=== PATIENT | female | born 1990 | race Caucasian/White ===

== ENCOUNTER 2020-01-29 14:53 | Inpatient (IN) | payer OTHER ==
[~2020-01-29] VITALS: Ht 165.1 cm; Wt 70.2 kg
[2020-01-29] VITALS (20 sets, daily range): BP systolic 129–147; BP diastolic 78–107; PULSE 93–127; RESP 18–29; TEMP 97.3–98.7
[2020-01-29] MEDS ORDERED: KETOROLAC TROMETHAMINE 30MG/ML ONE (15:52)
[2020-01-29] MEDS ORDERED: ONDANSETRON HCL 4 MG/2 ML VIAL ONE ×2 (15:52→17:46)
[2020-01-29] MEDS ORDERED: IOHEXOL 350 MG/ML 100ML INFUS..BTL IV ONE (17:25)
[2020-01-29] MEDS ORDERED: ZOSYN 3.375GM+NS 50ML 50 ML IV ONE ×2 (17:34→18:08)
[2020-01-29] MEDS ORDERED: SODIUM CHLORIDE 0.9% 1000ML 1,000 ML IV ONE (17:34)
[2020-01-29] MEDS ORDERED: FENTANYL CITRATE PF 50 MCG/1 ML 2ML VIAL ONE ×3 (17:35→18:26)
[2020-01-29] MEDS ORDERED: GLYCOPYRROLATE 1 MG/5 ML SYRINGE ONE (17:46)
[2020-01-29] MEDS ORDERED: LIDOCAINE PF 2% 5ML ABBOJECT ONE (17:46)
[2020-01-29] MEDS ORDERED: DEXAMETHASONE SOD PHOSPHATE 10MG/ML 1ML VIAL ONE (17:46)
[2020-01-29] MEDS ORDERED: PROPOFOL 10 MG/ML 20ML VIAL IV ONE (17:46)
[2020-01-29] MEDS ORDERED: MIDAZOLAM HCL 1 MG/ML 2ML VIAL ONE (17:46)
[2020-01-29] MEDS ORDERED: ROCURONIUM 10MG/1ML SYR 10 MG/ML ML ONE ×2 (17:47→19:03)
[2020-01-29] MEDS ORDERED: EPHEDRINE SULFATE 50 MG/ML AMPULE ONE (17:48)
[2020-01-29] MEDS ORDERED: ALBUMIN (HUMAN) 5% 250 ML IV ONE (17:54)
[2020-01-29] MEDS ORDERED: KETAMINE 50MG/ML SYRINGE 50 MG/ML DISP.SYRIN IV ONE (17:54)
[2020-01-29] MEDS ORDERED: ALBUMIN (HUMAN) 25% 50 ML IV ONE (17:55)
[2020-01-29] MEDS ORDERED: BUPIVACAINE/PF 0.5% 30ML VIAL ONE (19:13)
[2020-01-29] MEDS: ONDANSETRON HCL 4 MG/2 ML VIAL IVP PRN ×2 (19:55→20:11)
[2020-01-29] MEDS ORDERED: MEPERIDINE-PF 25 MG/ML SYG ONE (20:09)
[2020-01-29] MEDS: MORPHINE SULFATE 4 MG/1ML SYG IV PRN (22:00)
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
[2020-01-29] MEDS: ZOSYN 3.375GM+NS 50ML 50 ML IV SCH (22:28)
[2020-01-29] MEDS: D5W-1/2 NS/20MEQ KCL 1,000 ML IV SCH (22:29)
[2020-01-30] VITALS (13 sets, daily range): BP systolic 129–159; BP diastolic 81–104; PULSE 102–127; RESP 18–21; TEMP 98.1–99.2
[2020-01-30] MEDS ORDERED: MORPHINE SULFATE 2 MG/ML 1ML SYG IVP ONE (00:30)
[2020-01-30] MEDS ORDERED: MORPHINE SULFATE 2 MG/ML 1ML SYG ONE (00:36)
[2020-01-30] MEDS: D5W-1/2 NS/20MEQ KCL 1,000 ML IV SCH ×3 (02:13→14:21)
[2020-01-30] MEDS ORDERED: METRONIDAZOLE 500MG/100ML BAG 100 ML ONE (03:38)
[2020-01-30] MEDS: ONDANSETRON HCL 4 MG/2 ML VIAL IVP PRN ×4 (03:46→19:53)
[2020-01-30] MEDS: METRONIDAZOLE 500MG/100ML BAG 100 ML IV SCH ×3 (03:46→21:29)
[2020-01-30] MEDS: MORPHINE SULFATE 4 MG/1ML SYG IV PRN ×5 (03:48→19:54)
[2020-01-30] MEDS: ZOSYN 3.375GM+NS 50ML 50 ML IV SCH ×3 (05:59→19:53)
--- NOTE | 2020-01-30 08:15 | NUR ---
OB CONSULT Iman CASTANEDA CALLED PER CONSULT REQUEST FOR VAGINAL BLEEDING. MD MADE AWARE OF PATIENT STATUS OVER THE PHONE.
--- NOTE | 2020-01-30 08:41 | NUR ---
RAYNA TIJERINA MD MADE ROUNDS, SPOKE WITH PT AT BEDSIDE. GAVE ORDERS TO HAVE PT WORK WITH PT TO GET OUT OF BED TO CHAIR. INFORMED THE PT THAT SHE WOULD NEED SEVERAL DAYS OF ANTIBIOTICS. WANTS FOR PT TO REMAIN NPO.
[2020-01-30] MEDS: SODIUM CHLORIDE 0.9% 1000ML 500 ML IV SCH ×3 (09:45→10:45)
[2020-01-30] MEDS: FAMOTIDINE/PF 20 MG/2 ML VIAL IV SCH (10:33)
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
[2020-01-31] MEDS: ONDANSETRON HCL 4 MG/2 ML VIAL IVP PRN (02:38)
[2020-01-31] MEDS: MORPHINE SULFATE 4 MG/1ML SYG IV PRN ×4 (02:38→20:10)
[2020-01-31] MEDS: D5W-1/2 NS/20MEQ KCL 1,000 ML IV SCH ×5 (02:39→20:19)
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
[2020-01-31 03:19] VITALS: BP 127/87; PULSE 111; RESP 18; TEMP 99.2
[2020-01-31] MEDS: ZOSYN 3.375GM+NS 50ML 50 ML IV SCH ×3 (03:19→20:09)
--- NOTE | 2020-01-31 03:21 | NUR ---
BATH PT OFFERED BATH, REQUESTING TO HAVE ONE AFTER 0800. PT WANTS TO SLEEP NOW.
[2020-01-31] MEDS: METRONIDAZOLE 500MG/100ML BAG 100 ML IV SCH ×3 (05:31→21:58)
[2020-01-31 07:40] VITALS: BP 141/92; PULSE 109; RESP 18; TEMP 99.4
[2020-01-31] MEDS: FAMOTIDINE/PF 20 MG/2 ML VIAL IV SCH (08:17)
[2020-01-31 10:44] VITALS: BP 145/65; PULSE 110; RESP 18; TEMP 99.3
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
[2020-01-31 16:18] VITALS: BP 149/98; PULSE 113; RESP 18; TEMP 101.5
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
--- NOTE | 2020-01-31 16:38 | NUR ---
[facility] Recd call from Olive Hartley from Crisis center. She will be here at 8am to meet with pt.
[2020-01-31 20:14] VITALS: BP 129/85; PULSE 120; RESP 20; TEMP 99.9
--- NOTE | 2020-01-31 22:10 | NUR ---
TEMP OF 99.9 WITH SINUS TACH 130's Reported to on-call hospitalist. Pt ice cold packs applied and morphine prn for pain given at 2009. Heart rate maintained to 127's. Ordered to give Tylenol 650 mg supp x 1 dose only.
[2020-01-31] MEDS ORDERED: ACETAMINOPHEN 650 MG SUPPOSITORY RC SCH (22:15)
[2020-01-31] MEDS ORDERED: ACETAMINOPHEN 650 MG SUPPOSITORY RC ONE (22:20)
[2020-01-31 23:33] VITALS: BP 127/76; PULSE 120; RESP 16; TEMP 99.5
[2020-02-01] MEDS: MORPHINE SULFATE 4 MG/1ML SYG IV PRN ×5 (02:14→20:38)
[2020-02-01 04:25] VITALS: BP 124/79; PULSE 106; RESP 16; TEMP 99.8
[2020-02-01] MEDS: METRONIDAZOLE 500MG/100ML BAG 100 ML IV SCH ×3 (05:08→20:23)
[2020-02-01] MEDS: D5W-1/2 NS/20MEQ KCL 1,000 ML IV SCH ×2 (06:05→21:29)
[2020-02-01] MEDS: ZOSYN 3.375GM+NS 50ML 50 ML IV SCH ×3 (06:05→20:23)
[2020-02-01] MEDS: ONDANSETRON HCL 4 MG/2 ML VIAL IVP PRN (06:16)
[2020-02-01 08:00] VITALS: BP 123/81; PULSE 117; RESP 19; TEMP 100.2
--- NOTE | 2020-02-01 08:30 | NUR ---
[facility] Olive Hartley with [facility] here to meet with pt for possible assist with residential and legal support and well as emotional support. Security aware of this and no visitors will be allowed during this meeting. Nurse Niki and CARLIE aware
[2020-02-01] MEDS: FAMOTIDINE/PF 20 MG/2 ML VIAL IV SCH (09:49)
[2020-02-01 12:00] VITALS: BP 119/78; PULSE 115; RESP 20; TEMP 99.7
[2020-02-01] MEDS: FLUCONAZOLE 200 MG/NS 100 ML 100 ML IV SCH (14:00)
--- NOTE | 2020-02-01 14:30 | NUR ---
DR CHIN IN TO SEE PT. REMOVED BINDER AND ORDER TO LEAVE SURGICAL WOUND TO OPEN AIR. OK TO SHOWER.
[2020-02-01 16:00] VITALS: BP 123/77; PULSE 115; RESP 19; TEMP 99.7
[2020-02-01] MEDS ORDERED: FLUCONAZOLE 200 MG/NS 100 ML 100 ML ONE (17:36)
--- NOTE | 2020-02-01 18:26 | NUR ---
PT. WILL TRANSFER TO 3RD. FLOOR ROOM 313. REPORT GIVEN TO ANT MATHEW RN.
[2020-02-01 19:20] VITALS: BP 142/91; PULSE 104; RESP 17; TEMP 98.1
[2020-02-01] MEDS ORDERED: DEXTROSE 5 %-0.45 % NACL 0 ML IV ONE (20:05)
[2020-02-01 23:14] VITALS: BP 140/90; PULSE 110; RESP 17; TEMP 99
[2020-02-02] MEDS: MORPHINE SULFATE 4 MG/1ML SYG IV PRN ×7 (01:09→23:15)
[2020-02-02 03:50] VITALS: BP 142/90; PULSE 100; RESP 17; TEMP 98.5
[2020-02-02] MEDS: METRONIDAZOLE 500MG/100ML BAG 100 ML IV SCH ×3 (04:07→20:09)
[2020-02-02] MEDS: ZOSYN 3.375GM+NS 50ML 50 ML IV SCH ×3 (04:07→20:09)
[2020-02-02] MEDS: D5W-1/2 NS/20MEQ KCL 1,000 ML IV SCH ×3 (06:42→20:10)
[2020-02-02 07:54] VITALS: BP 127/80; PULSE 51; RESP 20; TEMP 98.7
[2020-02-02] MEDS: FAMOTIDINE/PF 20 MG/2 ML VIAL IV SCH (09:05)
--- NOTE | 2020-02-02 10:06 | NUR ---
[facility] f/u Sw left message for Olive Hartley at [facility] for update on dcp. Waiting for response
[2020-02-02 11:16] VITALS: BP 131/74; PULSE 107; RESP 21; TEMP 99.3
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
[2020-02-02] MEDS: FLUCONAZOLE 200 MG/NS 100 ML 100 ML IV SCH (13:07)
[2020-02-02 16:17] VITALS: BP 131/79; PULSE 105; RESP 20; TEMP 99.1
--- NOTE | 2020-02-02 18:10 | NUR ---
NG TUBE CLAMPED NG TUBE AT APPROX 0910 HOURS DIRECTED FOR 4 HOURS. AT APPROX 1309 ASSESSED RESIDUAL, APPROX 25ML OF GREEN FLUID WAS SUCTIONED. NG TUBE WAS DISCONTINUED ORDERED.
[2020-02-02 19:51] VITALS: BP 116/80; PULSE 112; RESP 18; TEMP 100.8
[2020-02-02] MEDS: ONDANSETRON HCL 4 MG/2 ML VIAL IVP PRN (20:10)
[2020-02-03] VITALS (7 sets, daily range): BP systolic 105–114; BP diastolic 68–79; PULSE 102–112; RESP 17–19; TEMP 98.1–101.4
[2020-02-03] MEDS: ONDANSETRON HCL 4 MG/2 ML VIAL IVP PRN (02:30)
[2020-02-03] MEDS: MORPHINE SULFATE 4 MG/1ML SYG IV PRN ×6 (02:32→20:21)
[2020-02-03] MEDS: ZOSYN 3.375GM+NS 50ML 50 ML IV SCH ×3 (05:20→20:05)
[2020-02-03] MEDS: METRONIDAZOLE 500MG/100ML BAG 100 ML IV SCH ×3 (05:20→22:28)
[2020-02-03] MEDS: D5W-1/2 NS/20MEQ KCL 1,000 ML IV SCH ×2 (05:21→15:22)
--- NOTE | 2020-02-03 09:30 | NUR ---
DR. COLT NEVES INFORMED THAT PATIENTS REPORTS SWELLING TO VAGINA, LEFT LABIAL FOLD. PATIENT REPORTS THE SWELLING FEEL WORSE TODAY.
[2020-02-03] MEDS: FAMOTIDINE/PF 20 MG/2 ML VIAL IV SCH (09:38)
[2020-02-03] MEDS: KETOROLAC TROMETHAMINE 15MG/ML IV SCH (10:07)
--- NOTE | 2020-02-03 10:15 | NUR ---
DR. CASTANEDA AWARE OF RE-CONSULT
[2020-02-03] MEDS ORDERED: DIATR MEGLU/DIATRIZOATE SODIUM 30 ML BOTTLE ONE (10:26)
[2020-02-03] MEDS ORDERED: BISACODYL 10 MG SUPP.RECT RC SCH (11:15)
--- NOTE | 2020-02-03 11:30 | NUR ---
DR. APONTE PAGED REGARDING CONSULT
[2020-02-03] MEDS ORDERED: IOHEXOL-350 75 ML VIAL IV ONE (13:15)
--- NOTE | 2020-02-03 16:17 | NUR ---
RE:CT GD ABDOMINAL DRAINAGE BY IR DR Jose DANIEL NOTIFIED OF PROCEDURE AT 1530 AND CALLED BACK AT 1600. REVIEWED IMAGES AND RESCHEDULED FOR TOMORROW MORNING SINCE PATIENT HAD BREAKFAST. DR Herman ALMONTE NOTIFIED OF PROCEDURE AND WILL REVIEW IMAGES TOMORROW. PROCEDURE OUTCOME REPORTED TO Hong DEAL RN. ORDERS PLACED IN [employer].
[2020-02-03] MEDS: ACETAMINOPHEN 325 MG TAB PO PRN (16:36)
[2020-02-03] MEDS: FLUCONAZOLE 200 MG/NS 100 ML 100 ML IV SCH (17:15)
[2020-02-04] VITALS (14 sets, daily range): BP systolic 109–133; BP diastolic 64–86; PULSE 86–125; RESP 16–22; TEMP 97.8–100.6
[2020-02-04] MEDS: MORPHINE SULFATE 4 MG/1ML SYG IV PRN ×3 (00:44→09:44)
[2020-02-04] MEDS: D5W-1/2 NS/20MEQ KCL 1,000 ML IV SCH ×3 (01:15→15:33)
[2020-02-04] MEDS ORDERED: KETOROLAC TROMETHAMINE 15MG/ML IV SCH (03:45)
[2020-02-04] MEDS: ZOSYN 3.375GM+NS 50ML 50 ML IV SCH ×3 (04:32→20:51)
[2020-02-04] MEDS: METRONIDAZOLE 500MG/100ML BAG 100 ML IV SCH ×3 (05:08→21:47)
[2020-02-04] MEDS: FAMOTIDINE/PF 20 MG/2 ML VIAL IV SCH (09:00)
[2020-02-04] MEDS: KETOROLAC TROMETHAMINE 15MG/ML IV SCH (09:36)
[2020-02-04] MEDS ORDERED: MORPHINE SULFATE 4 MG/1ML SYG ONE (09:43)
[2020-02-04] MEDS ORDERED: FENTANYL CITRATE PF 50 MCG/1 ML 2ML VIAL ONE (10:44)
[2020-02-04] MEDS ORDERED: MIDAZOLAM HCL 1 MG/ML 2ML VIAL ONE (10:44)
--- NOTE | 2020-02-04 11:30 | NUR ---
CT GD ABD DRAINAGE CATHETER PLACEMENT PROCEDURE PERFORMED BY DR Herman ALMONTE. PUNCTURE SITE LLQ. PATIENT TOLERATED PROCEDURE WELL. 10FR PIGTAIL CATHETER PLACED TO PELVIC ABSCESS AND CONNECTED TO DRAIN BAG. CATHETER SUTURED IN PLACE AND SECURED WITH STAY-FIX DRESSING. SPECIMEN COLLECTED AND SENT TO LAB. END OF PROCEDURE AT 1115. REPORT GIVEN TO Kelly PHILIP RN AND PATIENT TRANSPORTED TO [facility] VIA BED AT 1130. AAO X3 WITH NO C/O PAIN.
[2020-02-04] MEDS ORDERED: HYDROCODONE/ACETAMINOPHEN 7.5/325 MG TAB PO PRN (12:00)
[2020-02-04] MEDS ORDERED: ZOSYN 3.375GM+NS 50ML 50 ML IV ONE (12:23)
[2020-02-04] MEDS: FLUCONAZOLE 200 MG/NS 100 ML 100 ML IV SCH (15:19)
[2020-02-04] MEDS: KETOROLAC TROMETHAMINE 10 MG TABLET PO SCH ×2 (18:13→23:48)
[2020-02-04] MEDS: ACETAMINOPHEN-CODEINE 300/30MG TAB PO PRN (20:48)
[2020-02-05 03:37] VITALS: BP 117/74; PULSE 89; RESP 17; TEMP 98.8
[2020-02-05] MEDS: METRONIDAZOLE 500MG/100ML BAG 100 ML IV SCH ×3 (05:56→20:50)
[2020-02-05] MEDS: ZOSYN 3.375GM+NS 50ML 50 ML IV SCH ×3 (05:56→20:50)
[2020-02-05] MEDS: KETOROLAC TROMETHAMINE 10 MG TABLET PO SCH ×3 (05:56→18:41)
[2020-02-05 08:27] VITALS: BP 119/73; PULSE 102; RESP 18; TEMP 97.9
[2020-02-05] MEDS: FAMOTIDINE/PF 20 MG/2 ML VIAL IV SCH (10:49)
[2020-02-05] MEDS: ACETAMINOPHEN-CODEINE 300/30MG TAB PO PRN ×2 (10:50→20:50)
--- NOTE | 2020-02-05 11:51 | NUR ---
FADI SPOKE TO DR APONTE OVER THE PHONE ADN HE STATES HE IS NOT HEALTHCARE CUSTOMER SERVICE OR COMING UNTIL THURSDAY TO SEE THE PATIENT. WILL INFORM NURSE TO CALL TOMORROW AFTERNOON TO REMIND HIS OFFICE ABOUT THE CONSULT AND PATIENT REMAINS ON HIS CENSUS WELL.
[2020-02-05 11:59] VITALS: BP 131/78; PULSE 96; RESP 20; TEMP 100.8
[2020-02-05] MEDS: QUETIAPINE FUMARATE 25 MG TAB PO SCH (12:59)
[2020-02-05] MEDS: PAROXETINE HCL 20 MG TABLET PO SCH (12:59)
[2020-02-05] MEDS: FLUCONAZOLE 200 MG/NS 100 ML 100 ML IV SCH (14:10)
[2020-02-05] MEDS: HYDROMORPHONE 1 MG/1 ML AMP IVP PRN ×3 (14:11→23:15)
[2020-02-05 16:00] VITALS: BP 115/71; PULSE 87; RESP 20; TEMP 98
--- NOTE | 2020-02-05 18:00 | NUR ---
NOTE DR BELTRAN CAME IN AND EXPLAINED TO PATIENT THE REASON FOR THE CONSULT. PLEURAL EFFUSION. SHE HAD BEEN GIVEN INFORMATION REGARDING THIS AND ALSO REGARDING THORACENTESIS. PATIENT GAVE INFORMED CONSENT AND THEN TOLERATED PROCEDURE WELL. MINIMAL DISCOMFORT FROM IT. DRESSING TO PUNCTURE SITE D/I. DR BELTRAN EXPLAINED THE PROCEDURE WELL AND AFTER WARDS HE SCANNED WITH ULTRASOUND AND SAID NO CXR WAS NEEDED. PATIENT WITHOUT INCREASED SOB. REMAINS WITH O2@2LNC.
[2020-02-05 19:00] VITALS: BP 119/73; PULSE 98; RESP 18; TEMP 98
--- NOTE | 2020-02-05 20:50 | NUR ---
MEDS PT CLAIMS OF PAIN ON HER LEFT FLANK AREA. SHIFT ASSESSMENT DONE, PLEASE REFER TO CHART. DUE MEDS ADMINISTERED, TYLENOL #3 1 TAB PO GIVEN FOR PAIN, TOLERATED WELL. ASSISTED PT TO THE RESTROOM THEN BACK TO BED. WARM PACKS APPLIED TO BACK PT REQUESTED. KEPT COMFORTABLY IN BED WITH HOB ELEVATED. WILL MONITOR PT. Addendum: 02/06/20 at 0109 by INDY CERRATO RN RN Amended: Links added.
[2020-02-05 23:00] VITALS: BP 114/79; PULSE 92; RESP 18; TEMP 98.2
--- NOTE | 2020-02-05 23:15 | NUR ---
PAIN PT CALLS FOR PAIN MEDICATION. DILAUDID IV ADMINISTERED. POSITIONED COMFORTABLY IN BED WITH HOB ELEVATED. WILL RE-ASSESS PT.
[2020-02-06] MEDS: KETOROLAC TROMETHAMINE 10 MG TABLET PO SCH ×2 (00:08→05:37)
--- NOTE | 2020-02-06 02:00 | NUR ---
ROUNDS PT RESTING WELL, FAIRLY ASLEEP WITH RESPIRATIONS EVEN AND UNLABORED. NO DISTRESS NOTED. KEPT UNDISTURBED FOR NOW. WILL MONITOR PT. CALL LIGHT WITHIN REACH.
--- NOTE | 2020-02-06 02:15 | NUR ---
CALL PT CLAIMS OF PINCHING PAIN ON HER CHEST WHEN SHE BREATHS. PT ASKS FOR IV PAIN MEDICATION. EXPLAINED THAT DILAUDID IV IS NOT DUE AT THIS TIME. OFFERED PLAIN TYLENOL IT IS THE ONLY MED AVAILABLE AT THIS TIME BUT DECLINED AND CLAIMS SHE WILL WAIT FOR THE IV MED. PT IS UPSET AND CLAIMS THAT WHEN SHE DOES NOT CALL NOBODY GOES TO HER ROOM TO CHECK ON HER. REMINDED PT THAT PCP IS IN CHECKING V/S EVERY FOUR HOURS AND CURRICULUM ADVISORY TEACHER IS ALSO IN GIVING HER MEDS ALMOST EVERY HOUR. IN FACT CURRICULUM ADVISORY TEACHER WAS JUST IN 15 MINUTES EARLIER DOING ROUNDS AND SHE WAS ASLEEP. PT IS QUICK TO SAY THAT IT WAS NOT CURRICULUM ADVISORY TEACHER. REMINDED PT THAT TWO OTHER NURSES ON THE FLOOR HAD ANSWERED HER LIGHT WHEN SHE CALLED WHILE CURRICULUM ADVISORY TEACHER WAS ATTENDING TO OTHER PT. ENCOURAGED PT TO CALM DOWN AND TO DO IS FOR NOW. ASSURED PT TO COME AND RE-ASSESS PT IN AN HOUR WHEN IV DILAUDID IS DUE TO CHECK IF SHE STILL NEED IT. PT IS AGREEABLE AT THIS TIME.
[2020-02-06 03:00] VITALS: BP 123/74; PULSE 96; RESP 18; TEMP 99.1
[2020-02-06] MEDS: HYDROMORPHONE 1 MG/1 ML AMP IVP PRN ×5 (03:19→23:40)
--- NOTE | 2020-02-06 03:50 | NUR ---
WOUND PT CALLS SX INCISION ON MID ABDOMEN IS LEAKING YELLOWISH DRAINAGE. CLEANSED WOUND WITH SALINE, PAT DRY THEN COVERED WITH ABD PAD, SECURED WITH TAPE. INSTRUCTED PT TO INFORM STAFF IS GAUZE NEEDED CHANGING. PT ABLE TO AMBULATE ALONE BUT SLOWLY DUE TO SX INCISIONS. DUE IV ZOSYN HUNG. POSITIONED COMFORTABLY IN BED.
[2020-02-06] MEDS: ZOSYN 3.375GM+NS 50ML 50 ML IV SCH ×3 (03:57→21:24)
[2020-02-06] MEDS: METRONIDAZOLE 500MG/100ML BAG 100 ML IV SCH ×3 (05:14→21:24)
--- NOTE | 2020-02-06 05:37 | NUR ---
MEDS PT IS DOING IS AT THIS TIME. CLAIMS OF PAIN ON CHEST WITH BREATHING. EXPLAINED THAT PAIN MAYBE ASSOCIATED WITH RIB FRACTURE. DUE KETOROLAC PO ADMINISTERED. KEPT RESTED IN BED. FOR MORE CARE.
--- NOTE | 2020-02-06 06:47 | NUR ---
PAGED PAGED DR WAY, VIA ANSWERING SERVICE, TO REFER DRAINAGE ON SX WOUND. AWAITING CALL BACK.
--- NOTE | 2020-02-06 07:03 | NUR ---
MD DR WAY CALLED BACK AND REFERRED DRAINAGE ON THE SX SITE. NEW ORDERS GIVEN, PLEASE REFER TO CPOE. ENDORSING TO AM SHIFT FOR MORE CARE AND MANAGEMENT.
[2020-02-06 07:30] VITALS: BP 124/76; PULSE 96; RESP 21; TEMP 98.5
[2020-02-06] MEDS: PAROXETINE HCL 20 MG TABLET PO SCH (08:57)
[2020-02-06] MEDS: FAMOTIDINE/PF 20 MG/2 ML VIAL IV SCH (08:58)
[2020-02-06] MEDS: QUETIAPINE FUMARATE 25 MG TAB PO SCH (08:58)
[2020-02-06] MEDS ORDERED: TRAMADOL /APAP 37.5MG/325MG TAB PO PRN (10:00)
[2020-02-06 11:00] VITALS: BP 122/79; PULSE 101; RESP 18; TEMP 98.6
--- NOTE | 2020-02-06 11:28 | NUR ---
MD: RAYNA SPOKE TO DR WAY REGARDING DRAINAGE TO SX INCISION. STATED IS AWARE OF DRAINAGE . PER MD PACK DAILY, AND NEEDED. INFORMED HER OF YELLOW COLORED DRAINAGE, TEMP OF 100.2, AND ABD PAIN. NO FURTHER ORDERS GIVEN.
[2020-02-06] MEDS ORDERED: COMPOUND IV MISC 1 EACH IVSOLN MISC PRN (13:00)
[2020-02-06] MEDS: LACTATED RINGERS 1000ML 1,000 ML IV SCH ×2 (14:02→21:25)
[2020-02-06] MEDS: FLUCONAZOLE 200 MG/NS 100 ML 100 ML IV SCH (14:02)
[2020-02-06 16:00] VITALS: BP 126/80; PULSE 110; RESP 18; TEMP 100.4
--- NOTE | 2020-02-06 17:00 | NUR ---
SPOKE WITH DR WAY VIA TELEPHONE. MADE AWARE OF CT AND THAT SX INCISION IS STILL DRAINING, NOW DRAINING YELLOW-GREEN FLUID WITH SEDIMENT AND OF PT COMPLAINT OF ABD PAIN. NO NEW ORDERS GIVEN BY .
--- NOTE | 2020-02-06 17:00 | NUR ---
SPOKE WITH DR WAY REGARDING CT OF ABD/PEL RECOMMENDED BY DR PARK.
[2020-02-06 19:44] VITALS: BP 122/75; PULSE 101; RESP 19; TEMP 101.1
--- NOTE | 2020-02-06 20:46 | NUR ---
CALLED DR APONTE TO CLARIFY ORDER: CYMBALTA 30 MG 8AM AND 3PM. PER MD ORDERED CYMBALTA 30 MG PO BID. ORDER ENTERED.
[2020-02-06] MEDS: PRAZOSIN 2 MG PO SCH (21:00)
[2020-02-06] MEDS: DULOXETINE HCL 30 MG CAP PO SCH (21:24)
[2020-02-06] MEDS: RISPERIDONE 1 MG TABLET PO SCH (21:24)
[2020-02-06] MEDS ORDERED: DIATR MEGLU/DIATRIZOATE SODIUM 30 ML BOTTLE ONE (23:15)
[2020-02-06] MEDS ORDERED: VANCOMYCIN PROTOCOL PER PHARMACY IV SCH (23:15)
[2020-02-06] MEDS: ACETAMINOPHEN 325 MG TAB PO PRN (23:41)
[2020-02-06 23:47] VITALS: BP 126/85; PULSE 94; RESP 18; TEMP 101.1
[2020-02-07] MEDS ORDERED: SODIUM CHLORIDE 0.9% IV SCH
[2020-02-07] MEDS ORDERED: LACTATED RINGERS 1000ML IV ONE
[2020-02-07] MEDS ORDERED: VANCOMYCIN IV SCH
[2020-02-07] MEDS ORDERED: HYDROMORPHONE HCL 0.5 MG/0.5 ML ML ONE (00:24)
[2020-02-07] MEDS ORDERED: VANCOMYCIN 1GM+NS 250ML 250 ML IV ONE (00:24)
[2020-02-07] MEDS ORDERED: HYDROMORPHONE HCL 0.5 MG/0.5 ML ML IVP ONE (00:30)
[2020-02-07 00:41] VITALS: TEMP 99.7
[2020-02-07] MEDS: LACTATED RINGERS 1000ML 1,000 ML IV SCH ×2 (00:54→08:30)
--- NOTE | 2020-02-07 02:30 | NUR ---
02/05: I paged JoseBessjose alberto MERAZ via answering service, patient with elevated temperature of 101.1 oral. Ice packs placed in use. Patient complaining of severe pain even after I administered that Diluadid 1 mg earlier. Patient also have light yellow/green watery drainage from incision site. Dressing being changed as needed, done twice by now. 02/05@2034: Repaged Shannon MERAZ via answering service pending call. 02/05 @2109: Patient continues with elevated temperature of 101.1 oral. Dressing to abdomen changed 2 more times. Now with brown watery drainage large amount. Repaged Shannon MERAZ via answering service, asked if I could be connected directly to JoseHemalatha Andrzej MERAZ, answering service stated they would let her know, by paging her. 02/05 @2229: Patient now having loose stools coming out of the incision site, asked one of the other nurses to check drainage, also agreed it was feces coming out. Repaged Shannon MERAZ through answering service, let them know why I needed her to call me back. 02/05 @2253: Shannon MERAZ returned the call informed her of above, informed her patient's temperature still up at 101.1 oral, also let her know of the drainage coming out of the incision. Orders received for lab work, to call ID and surgeon for the patient. Patient made aware of new orders, verbalized understanding. 02/05@ 2256: I called answering service for Dr. Sams who connected me with the doctor at 2305. Informed Dr. Sams about the drainage now coming out from incision. Orders received for a CT Scan with oral contrast of Abdomen/Pelvis, also to keep patient NPO, and to put a colostomy bag . Informed her I would be calling the ID doctor due to the elevated temperature, verbalized understanding. 02/06@ 0003: Dr. Saenz called and informed of patient's elevated temperature. Informed him that the primary had already been informed and that she ordered for me to call him. Orders received for Vancomycin to be dosage by pharmacy.Orders entered and Luis pharmacist called and made aware of the needed dosing of Vancomycin, verbalized understanding. Patient made aware of new orders verbalized understanding. 02/06@0030: Shannon MERAZ in to see patient, informed her of what the orders from and Dr. Saenz were, verbalized understanding. She stated she wanted me to give a bolus of the LR due to patient septic at this time. LR one bolus administered at this time. Informed her that patient not having any relief from the diluadid I have been administering. Orders received to administer 0.5 mg more of Diluadid at this time. Colostomy placed in use large amount of drainage still coming out. 02/06@0130 Patient asleep, breathing nonlabored no discomfort noted. 02/06@0230: Patient back from CT scan. 023
--- NOTE | 2020-02-07 03:03 | NUR ---
called and informed her that patient CT results in and that it shows a fistula between stomach and incision. No new orders received.
[2020-02-07 03:42] VITALS: BP 114/70; PULSE 97; RESP 18; TEMP 98.8
[2020-02-07] MEDS: ZOSYN 3.375GM+NS 50ML 50 ML IV SCH (04:59)
[2020-02-07] MEDS: HYDROMORPHONE 1 MG/1 ML AMP IVP PRN ×6 (04:59→19:25)
[2020-02-07] MEDS: METRONIDAZOLE 500MG/100ML BAG 100 ML IV SCH ×2 (05:00→13:23)
[2020-02-07] MEDS ORDERED: COMPOUND IV REFRIGERATED 1 EACH IVSOLN MISC PRN (06:30)
--- NOTE | 2020-02-07 07:40 | NUR ---
called and ordered for LIS NGT, zinc oxide or narcal barrier to protect the rest of the skin where the colostomy is due to incision. Also strick I/O after NGT is placed to LIS. Incoming nurse made aware of new orders.
--- NOTE | 2020-02-07 08:00 | NUR ---
Received call from nora jeffries md spoke with dr bhatia on patient status ,1:1 done on consult .
--- NOTE | 2020-02-07 08:00 | NUR ---
NGT TUBE PLACED AND VERIFIED WITH X RAY DELTA AT 55.. CONT ON PAIN MANAGEMENT AND ANTIBIOTIC THERAPY . WILL CONT TO MONITOR
[2020-02-07] MEDS: VANCOMYCIN 1.25 GM in SODIUM CHLORIDE 0.9% 250 ML IV SCH (08:28)
[2020-02-07 08:29] VITALS: BP 118/77; PULSE 102; RESP 18; TEMP 98.4
[2020-02-07] MEDS: PRAZOSIN 2 MG PO SCH ×2 (09:00→21:00)
[2020-02-07] MEDS: PAROXETINE HCL 20 MG TABLET PO SCH (09:00)
[2020-02-07] MEDS: QUETIAPINE FUMARATE 25 MG TAB PO SCH (09:00)
[2020-02-07] MEDS: DULOXETINE HCL 30 MG CAP PO SCH ×2 (09:00→21:00)
[2020-02-07] MEDS: FAMOTIDINE/PF 20 MG/2 ML VIAL IV SCH (09:13)
[2020-02-07] MEDS: IRON SUCROSE COMPLEX 100 MG in SODIUM CHLORIDE 0.9% 50 ML IV SCH (10:20)
--- NOTE | 2020-02-07 10:54 | NUR ---
CONT TO MONITOR PATIENT PER TELE SINUS TACH DON TO 109 FROM 117 POST PAIN MEDICATION .WILL CONT TO MONITOR
[2020-02-07] MEDS: MEROPENEM 1 GM VIAL IVP SCH ×2 (11:19→18:34)
[2020-02-07 12:08] VITALS: BP 117/72; PULSE 107; RESP 16; TEMP 98.6
[2020-02-07] MEDS: FLUCONAZOLE 200 MG/NS 100 ML 100 ML IV SCH (13:23)
--- NOTE | 2020-02-07 14:19 | NUR ---
RDSCREEN - LOS X 9 Pt admitted for Perforated bowel. NPO with NGT for suction in place. S/p Ex Lap. Previous PO at 50-75%. Incisions with drainage as per EMR. When medically feasible, recommend resume diet/advance as tolerated to GI Soft/[place] Recommend Altered means nutrition if NPO >[address] to continue to monitor. Please notify as additional nutrition concerns arise. Thank you. Addendum: 02/07/20 at [address] Amended: Links added.
--- NOTE | 2020-02-07 14:30 | NUR ---
NOTIFIED DR WAY OF TEMP 100.4 ..NO NEW ORDERS GIVEN
[2020-02-07] MEDS ORDERED: D5LR-20 MEQ KCL 1000ML BAG IV SCH (15:00)
[2020-02-07] MEDS ORDERED: MAGNESIUM 2GM PREMIX 50ML 50 ML IV SCH (15:00)
--- NOTE | 2020-02-07 15:42 | NUR ---
RD UPDATE NOTIFICATION FOR TPN RECOMMENDATIONS RECOMMEND 83MLS/HR TO PROVIDE 100GM PROTEIN, 1420KCAL, GIR=3.47 REC 20% INTRALIPID MWF RECOMMENDATIONS TO BE PLACED IN PT CHART. RD TO CONTINUE TO MONITOR.
[2020-02-07] MEDS ORDERED: D5LR-20 MEQ KCL 1000 ML 1,000 ML IV SCH (15:45)
[2020-02-07 17:06] VITALS: BP 128/78; PULSE 105; RESP 16; TEMP 100.4
--- NOTE | 2020-02-07 18:00 | NUR ---
NOTIFIED DR VARGAS OF TEMP 102. NEW ORDER FOR TYLENOL SUPP
[2020-02-07] MEDS ORDERED: M.V.I. IV [ADULT] 10 ML in CLINIMIX E 5%-15% 2,000 ML IV SCH (18:15)
[2020-02-07] MEDS: ACETAMINOPHEN 650 MG SUPPOSITORY RC PRN (18:22)
[2020-02-07 20:10] VITALS: BP 129/78; PULSE 112; RESP 18; TEMP 100.8
[2020-02-07] MEDS ORDERED: PANTOPRAZOLE SODIUM 40 MG TABLET.DR PO SCH (21:00)
[2020-02-07] MEDS: RISPERIDONE 1 MG TABLET PO SCH (21:00)
--- NOTE | 2020-02-07 23:43 | NUR ---
Had paged Shannon RETAIL CHAIN STORE AREA SUPERVISOR to let her know patient very anxious requesting medication for anxiety and to sleep. Orders received for Lorazepam 0.5 mg IVP x1, and reconsult for suggestions on IV medication patient can have.
[2020-02-07] MEDS ORDERED: LORAZEPAM 2 MG/ML 1 ML VIAL IM ONE (23:45)
[2020-02-07] MEDS ORDERED: LORAZEPAM 2 MG/ML 1 ML VIAL ONE (23:58)
[2020-02-08] VITALS (12 sets, daily range): BP systolic 114–129; BP diastolic 68–90; PULSE 90–110; RESP 17–20; TEMP 98.4–100.5
[2020-02-08] MEDS: METRONIDAZOLE 500MG/100ML BAG 100 ML IV SCH ×4 (00:10→21:22)
[2020-02-08] MEDS: VANCOMYCIN 1.25 GM in SODIUM CHLORIDE 0.9% 250 ML IV SCH ×3 (01:52→09:00)
[2020-02-08] MEDS: HYDROMORPHONE 1 MG/1 ML AMP IVP PRN ×8 (01:59→22:35)
[2020-02-08] MEDS: MEROPENEM 1 GM VIAL IVP SCH ×3 (02:04→18:16)
[2020-02-08] MEDS: FAT EMULSIONS 20% 250ML 250 ML IV SCH (08:21)
[2020-02-08] MEDS: IRON SUCROSE COMPLEX 100 MG in SODIUM CHLORIDE 0.9% 50 ML IV SCH (08:22)
[2020-02-08] MEDS: FAMOTIDINE/PF 20 MG/2 ML VIAL IV SCH (08:22)
[2020-02-08] MEDS: OCTREOTIDE ACETATE 100 MCG/ML AMP SQ SCH ×2 (08:23→15:46)
[2020-02-08] MEDS: QUETIAPINE FUMARATE 25 MG TAB PO SCH (09:00)
[2020-02-08] MEDS: PRAZOSIN 2 MG PO SCH ×2 (09:00→21:00)
[2020-02-08] MEDS: PAROXETINE HCL 20 MG TABLET PO SCH (09:00)
[2020-02-08] MEDS: DULOXETINE HCL 30 MG CAP PO SCH ×2 (09:00→21:00)
[2020-02-08] MEDS ORDERED: MIDAZOLAM HCL 1 MG/ML 2ML VIAL ONE (11:33)
[2020-02-08] MEDS ORDERED: FENTANYL CITRATE PF 50 MCG/1 ML 2ML VIAL ONE (11:33)
--- NOTE | 2020-02-08 12:30 | NUR ---
CT GD POSTERIOR PELVIC DRAINAGE CATHETER PLACEMENT PROCEDURE PERFORMED BY DR Andreia BERKOWITZ. PUNCTURE SITE LT LOWER BACK. PATIENT TOLERATED PROCEDURE WELL. 10FR PIGTAIL CATHETER PLACED TO PELVIC ABSCESS AND CONNECTED TO DRAIN BAG. CATHETER SUTURED IN PLACE AND SECURED WITH STAY-FIX DRESSING. SPECIMEN COLLECTED AND SENT TO LAB. LLQ DRAIN REMOVED ORDERED WITH STERILE TECHNIQUE. DRESSING APPLIED. NO BLEEDING NOTED. END OF PROCEDURE AT 1210. REPORT GIVEN TO Eleazar FLANAGAN RN AND PATIENT TRANSPORTED TO [facility] VIA BED AT 1230. AAO X3 WITH NO C/O PAIN.
[2020-02-08] MEDS: PANTOPRAZOLE 40 MG/VIAL IVP SCH (12:38)
[2020-02-08] MEDS: FLUCONAZOLE 200 MG/NS 100 ML 100 ML IV SCH (12:56)
--- NOTE | 2020-02-08 17:33 | NUR ---
CHART REVIEWED. NOTE MADE FOR WOUND VAC. WILL FOLLOW WILL NEED TO DISCUSS W DR. NEVILLE LENGTH OF NEED., ETC. WILL NEED RAY WOUND VAC APPLICATION ANDF WOUND VAC ORDERS Addendum: 02/08/20 at 1735 by MYRON PENDLETON RN CM Amended: Links added.
[2020-02-08] MEDS: RISPERIDONE 1 MG TABLET PO SCH (21:00)
[2020-02-08] MEDS: LORAZEPAM 2 MG/ML 1 ML VIAL IM PRN (21:22)
[2020-02-09] VITALS (7 sets, daily range): BP systolic 101–123; BP diastolic 59–85; PULSE 65–115; RESP 18–20; TEMP 97.7–99.9
[2020-02-09] MEDS: OCTREOTIDE ACETATE 100 MCG/ML AMP SQ SCH ×3 (01:35→14:59)
[2020-02-09] MEDS: HYDROMORPHONE 1 MG/1 ML AMP IVP PRN ×7 (01:38→21:30)
[2020-02-09] MEDS: MEROPENEM 1 GM VIAL IVP SCH ×3 (02:45→17:44)
[2020-02-09] MEDS: LORAZEPAM 2 MG/ML 1 ML VIAL IM PRN (02:46)
[2020-02-09] MEDS: PRAZOSIN 2 MG PO SCH ×2 (07:34→21:00)
[2020-02-09] MEDS: DULOXETINE HCL 30 MG CAP PO SCH ×2 (07:34→21:00)
[2020-02-09] MEDS: PAROXETINE HCL 20 MG TABLET PO SCH (07:34)
[2020-02-09] MEDS ORDERED: VANCOMYCIN 2 GM in SODIUM CHLORIDE 0.9% 500ML 500 ML IV SCH (07:45)
--- NOTE | 2020-02-09 07:45 | NUR ---
[facility] consult Wound vac application performed using 1 piece of white foam in wound and 1 piece of black foam over it; adequate seal was obtained and suction set at 200mmhg continuously as ordered. Patient tolerated procedure without adverse effects or complaint. Addendum: 02/09/20 at 1223 by MARLON CONDE RN/LORI Amended: Links added.
[2020-02-09] MEDS: M.V.I. IV [ADULT] 10 ML in CLINIMIX E 5%-15% 2,000 ML IV SCH (08:27)
[2020-02-09] MEDS: QUETIAPINE FUMARATE 25 MG TAB PO SCH (08:28)
[2020-02-09] MEDS: FAMOTIDINE/PF 20 MG/2 ML VIAL IV SCH (08:28)
[2020-02-09] MEDS: PANTOPRAZOLE 40 MG/VIAL IVP SCH (08:28)
[2020-02-09] MEDS: IRON SUCROSE COMPLEX 100 MG in SODIUM CHLORIDE 0.9% 50 ML IV SCH (08:29)
[2020-02-09] MEDS: SODIUM CHLORIDE 0.9% 10 ML VIAL IV SCH ×2 (08:30→21:29)
[2020-02-09] MEDS: FLUCONAZOLE 200 MG/NS 100 ML 100 ML IV SCH (11:32)
[2020-02-09] MEDS ORDERED: LORAZEPAM 2 MG/ML 1 ML VIAL IVP PRN ×2 (11:45→14:15)
--- NOTE | 2020-02-09 15:43 | NUR ---
[facility] FOLLOW UP Pt with abdominal fistula. TPN to be continued. S/p Thoracentesis 02/05/20. Colostomy bag. I/O [id number]. K[facility]RO[facility] to continue to monitor. Addendum: 02/09/20 at [address] Amended: Links added.
--- NOTE | 2020-02-09 16:15 | NUR ---
DISCUSSED PLAN OF CARE W DR. VIVIAN WAGNER TODAY PLAN TO HAVE WOUND VAC FORMS ON CHART FOR DR. NEVILLE IN Addendum: 02/09/20 at 1616 by MYRON PENDLETON RN CM Amended: Links added.
--- NOTE | 2020-02-09 16:17 | NUR ---
DISPO IN FLUX, DEPENDS ON DISCHARGE CARE NEEDS. Addendum: 02/09/20 at 1617 by MYRON PENDLETON RN CM Amended: Links added.
[2020-02-09] MEDS: RISPERIDONE 1 MG TABLET PO SCH (21:00)
[2020-02-09] MEDS: VANCOMYCIN 1.5 GM in SODIUM CHLORIDE 0.9% 250 ML IV SCH (21:35)
[2020-02-09] MEDS: METRONIDAZOLE 500MG/100ML BAG 100 ML IV SCH (23:00)
[2020-02-10] MEDS: MEROPENEM 1 GM VIAL IVP SCH ×3 (02:47→18:22)
[2020-02-10] MEDS: HYDROMORPHONE 1 MG/1 ML AMP IVP PRN ×7 (02:47→21:08)
[2020-02-10 04:16] VITALS: BP 125/73; PULSE 114; RESP 18; TEMP 99.9
[2020-02-10] MEDS: METRONIDAZOLE 500MG/100ML BAG 100 ML IV SCH ×3 (06:01→23:32)
[2020-02-10 08:00] VITALS: BP 122/77; PULSE 115; RESP 16; TEMP 99.8
[2020-02-10] MEDS: VANCOMYCIN 1.5 GM in SODIUM CHLORIDE 0.9% 250 ML IV SCH ×2 (08:48→21:07)
[2020-02-10] MEDS: PAROXETINE HCL 20 MG TABLET PO SCH (09:00)
[2020-02-10] MEDS: QUETIAPINE FUMARATE 25 MG TAB PO SCH (09:00)
[2020-02-10] MEDS: PRAZOSIN 2 MG PO SCH ×2 (09:00→21:00)
[2020-02-10] MEDS: DULOXETINE HCL 30 MG CAP PO SCH ×2 (09:00→21:07)
[2020-02-10] MEDS: PANTOPRAZOLE 40 MG/VIAL IVP SCH (09:16)
[2020-02-10] MEDS: IRON SUCROSE COMPLEX 100 MG in SODIUM CHLORIDE 0.9% 50 ML IV SCH (09:17)
[2020-02-10] MEDS: OCTREOTIDE ACETATE 100 MCG/ML AMP SQ SCH ×3 (09:18→16:33)
--- NOTE | 2020-02-10 09:41 | NUR ---
LONG CALL WITH FATHER VERIFIED WITH PT AT BEDSIDE OK TO DISCUSS CARE LYDIA ESCOBAR WANTS A PLACE FOR PATIENT TO BE HOUSED AT DISCHARGE AND NUSES TO CHECK ON HER. ADVISED HIM THAT [facility] PARAMETERS ARE TO HELP WITH DISCHARGE EQUIPMENT LIKE WOUND VAC AND MEDICAL NEEDS., PIG IRON LOADER HAS ALREADY BEEN WORKING ON [facility] BUT DEPENDS ON MEDICAL NEEDS AT TIME OF DISCHARGE. WILL WORK ON WOUND VAC/RAY WOUND VAC APPLICATION AND WHC 3 X WEEK FATHER STATES HAS A SISTER SHE CAN LIVE W BUT SISTER HAS NO CAR-FATHER SAYS WILL HOSPITAL PAY FOR TRANSPORT FOR PATIENT? ADVISED HIM NO- DC OPAL MINER CAN HELP WITH WOUNDVAC APPLICATION AND ARRANGEMENT FOR DRESSING CHANGES. THERE ARE VIRTUALLY NO RAY HOME HEALTH VISITS FATHER CALLED BACK AND STATES THAT TIM NEEDS A POLICE REPORT 'ACCORDING TO SOMEONE AT THE HOSPITAL, IT IWLL HELP PAY FOR THE STAY" STATES HE CANNOT GET ONE , BUT HE FOUND OUT THAT THE HOSPITAL CAN EMAIL A REQUEST FATHER WANTS WHOEVER WILL BE WORKING ON OBTAINING THE POLICE REPORT- SW OR [facility] - TO GIVE HIM A CALL SO HE CAN EXPLAIN WHAT THE POLICE TOLD HIM ABOUT EMAIL REQUESTS HIS NUMBER IS [phone]. ADVISED HIM I=THIS CM WOULD FORWARD MESSAGE TO [facility] AND .. HE DECLINED TO ATTEMPT TO CALL DIRECTLY, WOULD RATHER HAVE CALL BACK. Addendum: 02/10/20 at 0959 by MYRON PENDLETON RN CM Amended: Links added.
--- NOTE | 2020-02-10 10:00 | NUR ---
22 G SALINE LOCK HAS BEEN STARTED ON LT. HAND SHE HAS SEVERAL IV MEDICATIONS ON BOARD
[2020-02-10] MEDS: SODIUM CHLORIDE 0.9% 10 ML VIAL IV SCH ×2 (10:23→21:28)
[2020-02-10] MEDS: FAMOTIDINE/PF 20 MG/2 ML VIAL IV SCH (10:23)
[2020-02-10] MEDS: FAT EMULSIONS 20% 250ML 250 ML IV SCH (10:41)
[2020-02-10 11:00] VITALS: BP 110/67; PULSE 117; RESP 19; TEMP 99.5
[2020-02-10] MEDS ORDERED: SODIUM CHLORIDE 0.9% 250 ML IV ONE (11:51)
--- NOTE | 2020-02-10 12:40 | NUR ---
ONE UNIT OF BLOOD HAS BEEN ORDERED FOR A HGB OF SEVEN. STARTED NOW, WILL MONITOR FOR S/S OF A REACTION, HAS BEEN EXPLAINED TO HER AND SHE VERBALIZES UNDERSTANDING.
--- NOTE | 2020-02-10 15:15 | NUR ---
UNIT OF BLOOD NOW COMPLETE, NO ADVERSE REACTION.
[2020-02-10] MEDS: FLUCONAZOLE 200 MG/NS 100 ML 100 ML IV SCH (15:29)
[2020-02-10] MEDS: M.V.I. IV [ADULT] 10 ML in CLINIMIX E 5%-15% 2,000 ML IV SCH (15:35)
[2020-02-10 16:00] VITALS: BP 129/81; PULSE 100; RESP 20; TEMP 99
[2020-02-10 20:16] VITALS: BP 125/87; PULSE 95; RESP 20; TEMP 100.4
[2020-02-10] MEDS: RISPERIDONE 1 MG TABLET PO SCH (21:06)
[2020-02-10] MEDS ORDERED: SODIUM CHLORIDE 0.9% 500ML 500 ML IV ONE (21:19)
[2020-02-11 00:16] VITALS: BP 112/75; PULSE 108; RESP 18; TEMP 99.4
[2020-02-11] MEDS: HYDROMORPHONE 1 MG/1 ML AMP IVP PRN ×6 (01:33→21:55)
[2020-02-11] MEDS: MEROPENEM 1 GM VIAL IVP SCH ×3 (02:33→18:47)
[2020-02-11 04:16] VITALS: BP 112/74; PULSE 103; RESP 20; TEMP 98.4
[2020-02-11] MEDS: METRONIDAZOLE 500MG/100ML BAG 100 ML IV SCH ×3 (06:16→20:14)
[2020-02-11 07:29] VITALS: BP 106/66; PULSE 109; RESP 16; TEMP 99.2
[2020-02-11] MEDS: PRAZOSIN 2 MG PO SCH ×2 (09:00→20:16)
[2020-02-11] MEDS: PAROXETINE HCL 20 MG TABLET PO SCH (09:00)
[2020-02-11] MEDS: SODIUM CHLORIDE 0.9% 10 ML VIAL IV SCH ×2 (09:00→20:14)
[2020-02-11] MEDS: DULOXETINE HCL 30 MG CAP PO SCH ×2 (09:00→20:15)
[2020-02-11] MEDS: QUETIAPINE FUMARATE 25 MG TAB PO SCH (09:00)
[2020-02-11 10:39] VITALS: BP 122/74; PULSE 107; RESP 18; TEMP 98.9
[2020-02-11] MEDS: IRON SUCROSE COMPLEX 100 MG in SODIUM CHLORIDE 0.9% 50 ML IV SCH (10:55)
[2020-02-11] MEDS: FAMOTIDINE/PF 20 MG/2 ML VIAL IV SCH (11:04)
[2020-02-11] MEDS: PANTOPRAZOLE 40 MG/VIAL IVP SCH (11:04)
[2020-02-11] MEDS: OCTREOTIDE ACETATE 100 MCG/ML AMP SQ SCH ×3 (11:12→18:27)
[2020-02-11] MEDS ORDERED: VANCOMYCIN 2 GM in SODIUM CHLORIDE 0.9% 500ML 500 ML IV SCH (11:45)
[2020-02-11] MEDS: FLUCONAZOLE 200 MG/NS 100 ML 100 ML IV SCH (14:08)
[2020-02-11] MEDS: M.V.I. IV [ADULT] 10 ML in CLINIMIX E 5%-15% 2,000 ML IV SCH (14:29)
[2020-02-11 15:22] VITALS: BP_SYST 114; BP_SYST 129; BP_DIAS 46; BP_DIAS 67; PULSE 105; PULSE 82; RESP 18; TEMP 98.1
[2020-02-11] MEDS: VANCOMYCIN 1.5 GM in SODIUM CHLORIDE 0.9% 250 ML IV SCH (20:14)
[2020-02-11] MEDS: RISPERIDONE 1 MG TABLET PO SCH (20:15)
[2020-02-11] MEDS: ACETAMINOPHEN 650 MG SUPPOSITORY RC PRN (21:20)
[2020-02-11 21:24] VITALS: BP 116/75; PULSE 98; RESP 19; TEMP 98.8
[2020-02-12 00:13] VITALS: BP 108/68; PULSE 97; RESP 20; TEMP 98.2
[2020-02-12] MEDS: OCTREOTIDE ACETATE 100 MCG/ML AMP SQ SCH ×3 (01:00→16:00)
[2020-02-12] MEDS: MEROPENEM 1 GM VIAL IVP SCH ×3 (01:00→18:48)
[2020-02-12] MEDS: HYDROMORPHONE 1 MG/1 ML AMP IVP PRN ×7 (01:01→22:11)
--- NOTE | 2020-02-12 01:19 | NUR ---
flushed red buttocks uresil drain with 10 ml of normal saline. output is serosanguineous with brown purulent material
[2020-02-12 04:33] VITALS: BP 117/71; PULSE 97; RESP 19; TEMP 98.2
[2020-02-12] MEDS: METRONIDAZOLE 500MG/100ML BAG 100 ML IV SCH ×3 (06:04→20:38)
[2020-02-12] MEDS: VANCOMYCIN 1.5 GM in SODIUM CHLORIDE 0.9% 250 ML IV SCH ×3 (06:04→20:38)
[2020-02-12 08:00] VITALS: BP 109/74; PULSE 108; RESP 16; TEMP 99.2
[2020-02-12] MEDS: PRAZOSIN 2 MG PO SCH ×2 (09:00→20:39)
[2020-02-12] MEDS: IRON SUCROSE COMPLEX 100 MG in SODIUM CHLORIDE 0.9% 50 ML IV SCH (09:00)
[2020-02-12] MEDS: SODIUM CHLORIDE 0.9% 10 ML VIAL IV SCH ×2 (09:46→20:50)
[2020-02-12] MEDS: FAMOTIDINE/PF 20 MG/2 ML VIAL IV SCH (09:46)
[2020-02-12] MEDS: QUETIAPINE FUMARATE 25 MG TAB PO SCH (09:47)
[2020-02-12] MEDS: DULOXETINE HCL 30 MG CAP PO SCH ×2 (09:47→20:39)
[2020-02-12] MEDS: PANTOPRAZOLE 40 MG/VIAL IVP SCH (09:47)
[2020-02-12] MEDS: PAROXETINE HCL 20 MG TABLET PO SCH (09:54)
[2020-02-12] MEDS: FAMOTIDINE 20MG TAB 20 MG TAB PO SCH ×2 (10:55→20:39)
[2020-02-12 11:00] VITALS: BP 110/63; PULSE 102; RESP 18; TEMP 99
--- NOTE | 2020-02-12 11:21 | NUR ---
ATTEMPTED TO VERIFY NGTUB
--- NOTE | 2020-02-12 11:29 | NUR ---
CXR TO BE REPEATED FOR NG PLACEMENT.
[2020-02-12] MEDS: FLUCONAZOLE 200 MG/NS 100 ML 100 ML IV SCH (14:40)
[2020-02-12 16:00] VITALS: BP 114/77; PULSE 97; RESP 16; TEMP 99.8
[2020-02-12] MEDS: M.V.I. IV [ADULT] 10 ML in CLINIMIX E 5%-15% 2,000 ML IV SCH (17:22)
--- NOTE | 2020-02-12 18:00 | NUR ---
has requested pain medication q 3 hrs. keps asking for dose to be increased. ng now in place and placement verified with air bolus. wound vac also had a leak but were able get a good seal after changing out tubing and re-taping of dressing. uses i/s frequently and pulls 1000.encouraged to be up more and to cough and deep breathe but is afraid because of pain.
[2020-02-12] MEDS: RISPERIDONE 1 MG TABLET PO SCH (20:39)
[2020-02-12 22:06] VITALS: BP 119/72; PULSE 100; RESP 20; TEMP 99.3
[2020-02-13] MEDS: OCTREOTIDE ACETATE 100 MCG/ML AMP SQ SCH ×3 (00:36→14:11)
[2020-02-13] MEDS: MEROPENEM 1 GM VIAL IVP SCH ×3 (00:36→18:51)
[2020-02-13 01:16] VITALS: BP 109/61; PULSE 100; RESP 20; TEMP 98.9
[2020-02-13] MEDS: HYDROMORPHONE 1 MG/1 ML AMP IVP PRN ×7 (01:20→22:08)
[2020-02-13] MEDS: METRONIDAZOLE 500MG/100ML BAG 100 ML IV SCH ×3 (04:42→22:09)
--- NOTE | 2020-02-13 05:42 | NUR ---
ABDOMINAL WOUND CLEANED WITH SALINE. PICTURE TAKEN AND WOUND VAC CHANGED. NO ISSUES.
[2020-02-13 05:59] VITALS: BP 106/65; PULSE 100; RESP 20; TEMP 99
[2020-02-13] MEDS: VANCOMYCIN 1.5 GM in SODIUM CHLORIDE 0.9% 250 ML IV SCH (06:15)
[2020-02-13 08:35] VITALS: BP 114/73; PULSE 87; RESP 19; TEMP 98.9
[2020-02-13] MEDS: PRAZOSIN 2 MG PO SCH ×2 (09:00→21:00)
[2020-02-13] MEDS: PANTOPRAZOLE 40 MG/VIAL IVP SCH (11:25)
[2020-02-13] MEDS: DULOXETINE HCL 30 MG CAP PO SCH ×2 (11:25→22:03)
[2020-02-13] MEDS: QUETIAPINE FUMARATE 25 MG TAB PO SCH (11:25)
[2020-02-13] MEDS: PAROXETINE HCL 20 MG TABLET PO SCH (11:31)
[2020-02-13] MEDS: FAT EMULSIONS 20% 250ML 250 ML IV SCH (11:32)
[2020-02-13] MEDS: SODIUM CHLORIDE 0.9% 10 ML VIAL IV SCH ×2 (11:46→22:04)
[2020-02-13 12:05] VITALS: TEMP 98.3
[2020-02-13] MEDS: FLUCONAZOLE 200 MG/NS 100 ML 100 ML IV SCH (14:10)
[2020-02-13] MEDS: VANCOMYCIN 1.25 GM in SODIUM CHLORIDE 0.9% 250 ML IV SCH ×2 (14:13→22:24)
--- NOTE | 2020-02-13 15:16 | NUR ---
KENROY FOLLOW UP Pt continues with TPN Clinimix E 01/05 @83mls/hr to provide 100gm protein, 1420kcal. 20% intralipid provided MWF. KENROY to continue to monitor. Please notify as additional nutrition concerns arise. Thank you. Addendum: 02/13/20 at [address] Amended: Links added.
[2020-02-13 16:42] VITALS: BP 112/69; PULSE 111; RESP 20; TEMP 98.4
--- NOTE | 2020-02-13 18:00 | NUR ---
LF BUTTOCK DRAIN DRESSING CHANGED USING CLEAN TECHNIQUE, IODINE AND 4X4S AND OPSITE.
[2020-02-13 20:00] VITALS: BP 106/68; PULSE 110; RESP 16; TEMP 99
[2020-02-13] MEDS: RISPERIDONE 1 MG TABLET PO SCH (22:03)
[2020-02-13] MEDS: FAMOTIDINE/PF 20 MG/2 ML VIAL IV SCH (22:03)
[2020-02-13] MEDS: M.V.I. IV [ADULT] 10 ML in CLINIMIX E 5%-15% 2,000 ML IV SCH (22:09)
[2020-02-14] VITALS (7 sets, daily range): BP systolic 108–118; BP diastolic 63–75; PULSE 110–121; RESP 16–19; TEMP 97.8–99.8
[2020-02-14] MEDS: OCTREOTIDE ACETATE 100 MCG/ML AMP SQ SCH ×4 (00:13→23:46)
[2020-02-14] MEDS: MEROPENEM 1 GM VIAL IVP SCH ×3 (02:41→18:10)
[2020-02-14] MEDS: HYDROMORPHONE 1 MG/1 ML AMP IVP PRN ×7 (02:42→23:47)
[2020-02-14] MEDS: METRONIDAZOLE 500MG/100ML BAG 100 ML IV SCH ×3 (05:35→19:47)
[2020-02-14] MEDS: VANCOMYCIN 1.25 GM in SODIUM CHLORIDE 0.9% 250 ML IV SCH ×3 (06:21→20:48)
--- NOTE | 2020-02-14 08:00 | NUR ---
NG TUBE CLAMPED
[2020-02-14] MEDS: FAMOTIDINE/PF 20 MG/2 ML VIAL IV SCH ×2 (08:47→19:47)
[2020-02-14] MEDS: PANTOPRAZOLE 40 MG/VIAL IVP SCH (08:47)
[2020-02-14] MEDS: DULOXETINE HCL 30 MG CAP PO SCH ×2 (08:52→19:47)
[2020-02-14] MEDS: QUETIAPINE FUMARATE 25 MG TAB PO SCH (08:53)
[2020-02-14] MEDS: PAROXETINE HCL 20 MG TABLET PO SCH (08:53)
[2020-02-14] MEDS: PRAZOSIN 2 MG PO SCH ×2 (08:56→19:57)
[2020-02-14] MEDS: SODIUM CHLORIDE 0.9% 10 ML VIAL IV SCH ×2 (08:57→19:58)
[2020-02-14] MEDS: M.V.I. IV [ADULT] 10 ML in CLINIMIX E 5%-15% 2,000 ML IV SCH (09:00)
--- NOTE | 2020-02-14 12:15 | NUR ---
GASTRIC RESIDUAL ASSESSED GASTRIC RESIDUAL, OBTAINED 10ML DARK GREEN COLORED FLUID. RETURNED GASTRIC RESIDUAL AND CLAMPED NG TUBE. PAGED DR. WAY TO INFORM HER OF RESULTS.
[2020-02-14] MEDS: FLUCONAZOLE 200 MG/NS 100 ML 100 ML IV SCH (13:16)
--- NOTE | 2020-02-14 15:45 | NUR ---
RD UPDATE Pt continues with Clinimix E 01/05 @83mls/hr, meeting nutritional needs. Pt with gastric residual from NGT; NGT clamped as per EMR. RD to continue to monitor.
[2020-02-14] MEDS: LORAZEPAM 2 MG/ML 1 ML VIAL IVP PRN (16:05)
[2020-02-14] MEDS: RISPERIDONE 1 MG TABLET PO SCH (19:47)
[2020-02-15] MEDS: MEROPENEM 1 GM VIAL IVP SCH ×3 (01:19→18:30)
[2020-02-15] MEDS: HYDROMORPHONE 1 MG/1 ML AMP IVP PRN ×6 (01:59→14:27)
[2020-02-15 03:50] VITALS: BP 112/60; PULSE 110; RESP 17; TEMP 98
[2020-02-15] MEDS: M.V.I. IV [ADULT] 10 ML in CLINIMIX E 5%-15% 2,000 ML IV SCH (04:40)
[2020-02-15] MEDS: METRONIDAZOLE 500MG/100ML BAG 100 ML IV SCH ×3 (05:42→21:46)
[2020-02-15] MEDS ORDERED: ALTEPLASE 2 MG/VIAL IVCATH SCH (08:00)
[2020-02-15] MEDS: SODIUM CHLORIDE 0.9% 10 ML VIAL IV SCH (09:00)
[2020-02-15] MEDS: PANTOPRAZOLE 40 MG/VIAL IVP SCH (09:00)
[2020-02-15] MEDS: PRAZOSIN 2 MG PO SCH ×2 (09:00→21:00)
[2020-02-15] MEDS: PAROXETINE HCL 20 MG TABLET PO SCH (09:50)
[2020-02-15] MEDS: QUETIAPINE FUMARATE 25 MG TAB PO SCH (09:51)
[2020-02-15] MEDS: DULOXETINE HCL 30 MG CAP PO SCH ×2 (09:51→21:34)
[2020-02-15] MEDS: FAMOTIDINE/PF 20 MG/2 ML VIAL IV SCH ×2 (09:52→21:34)
[2020-02-15] MEDS: OCTREOTIDE ACETATE 100 MCG/ML AMP SQ SCH ×2 (09:55→16:51)
[2020-02-15 09:57] VITALS: BP 119/72; PULSE 110; RESP 18; TEMP 99
[2020-02-15 12:17] VITALS: BP 106/70; PULSE 113; RESP 18; TEMP 99.1
[2020-02-15] MEDS: FLUCONAZOLE 200 MG/NS 100 ML 100 ML IV SCH (14:22)
[2020-02-15] MEDS: VANCOMYCIN 1.25 GM in SODIUM CHLORIDE 0.9% 250 ML IV SCH (14:40)
--- NOTE | 2020-02-15 14:50 | NUR ---
DR. RAMOS HERE, FOR CARE. FOLLOWUP . WOUND VAC, AND DRAIN TO HER PELVIC , SPOKE WITH PT OF OVERALL . ASSESSMENT .
--- NOTE | 2020-02-15 15:00 | NUR ---
SPOKE WITH STAFF NURSE , AUGIE Pitts FROM [facility]. REGARDING ,DR RAMOS FOR A REMOVAL OF A PELVIC DRAIN ORDER UPDATE GIVEN
--- NOTE | 2020-02-15 15:54 | NUR ---
RE: POSTERIOR PELVIC DRAINAGE CATHETER PLACEMENT DR BERKOWITZ NOTIFIED OF REQUEST FOR REMOVE DRAINAGE CATHETER. OUTPUT 20CC IN 24HRS AND NO FEVERS. OK TO REMOVE DRAINAGE CATHETER. PROCEDURE PERFORMED AT BEDSIDE. PROCEDURE EXPLAINED AND PATIENT VERBALIZED UNDERSTANDING. LT BUTTOCK CATHETER REMOVED WITH STERILE TECHNIQUE AND PATIENT TOLERATED PROCEDURE WELL. DRESSING APPLIED AND NO BLEEDING NOTED. REPORT GIVEN TO Adry MONTES RN
[2020-02-15 17:09] VITALS: PULSE 94; RESP 16; TEMP 98.2
--- NOTE | 2020-02-15 18:00 | NUR ---
WOUND VAC DRSG CHANGED TO HER MID ABD SITE. NOTED YELLOWISH . THICK OUTPUT FROM WOUND. REMOVAL OF A WHITE FOAM SPONGE CLEASNE SITE . A CLEAN WHITE FOAM SPONGE PLACED BACK IN AN BLACK ON TOP OF OF ABD SITE , WITH WOUND VAC DRSG SETTING AT 100 MMHG CONTINOUS RATE, AND A NEW CANISTER WITH STARTING STRICT INTAKE AND OUTPUT . DRAINAGE COLLECTED AT THE WOUND VAC SITE .
[2020-02-15] MEDS: OXYCODONE/ACETAMIN 5/325MG TAB PO PRN (18:29)
[2020-02-15 19:35] VITALS: BP 102/63; PULSE 94; RESP 17; TEMP 98.2
[2020-02-15] MEDS ORDERED: M.V.I. IV [ADULT] 10 ML in CLINIMIX E 5%-15% 2,000 ML IV SCH (20:30)
[2020-02-15] MEDS: RISPERIDONE 1 MG TABLET PO SCH (21:34)
[2020-02-15] MEDS: LORAZEPAM 2 MG/ML 1 ML VIAL IVP PRN (21:34)
[2020-02-15 23:46] VITALS: BP 119/80; PULSE 77; RESP 17; TEMP 98.3
[2020-02-16] MEDS: OXYCODONE/ACETAMIN 5/325MG TAB PO PRN ×4 (00:49→23:19)
[2020-02-16] MEDS: VANCOMYCIN 1.25 GM in SODIUM CHLORIDE 0.9% 250 ML IV SCH ×2 (00:50→06:02)
[2020-02-16] MEDS: FAT EMULSIONS 20% 250ML 250 ML IV SCH (00:50)
[2020-02-16] MEDS: SODIUM CHLORIDE 0.9% 10 ML VIAL IV SCH ×3 (00:50→19:57)
[2020-02-16] MEDS: OCTREOTIDE ACETATE 100 MCG/ML AMP SQ SCH ×4 (00:57→23:06)
--- NOTE | 2020-02-16 01:06 | NUR ---
CATHFLO ADMINISTERED INSTRUCTED TO PINK PORT. ALLOWED FOR SOLUTION TO SIT IN LINE FOR 30 MINUTES BEFORE WITH DRAWING. AFTER THE 30 MINUTES WAS ABLE TO PULL BACK BLOOD, REMOVED 10 CC OF BLOOD AND DISCARDED. FLUSHED LINE WITH SALINE. X2 PORTS FLUSH WELL AND DRAW BACK BLOOD WITHOUT ANY RESISTANCE. PT HORTENCIA PROCEDURE WELL.
[2020-02-16] MEDS: MEROPENEM 1 GM VIAL IVP SCH ×3 (03:37→18:41)
[2020-02-16 03:40] VITALS: BP 105/65; PULSE 110; RESP 17; TEMP 99.3
[2020-02-16] MEDS: METRONIDAZOLE 500MG/100ML BAG 100 ML IV SCH ×3 (05:13→19:56)
[2020-02-16 07:47] VITALS: BP 100/66; PULSE 108; RESP 18; TEMP 98.3
[2020-02-16] MEDS: DULOXETINE HCL 30 MG CAP PO SCH ×2 (08:31→19:57)
[2020-02-16] MEDS: FAMOTIDINE/PF 20 MG/2 ML VIAL IV SCH ×2 (08:31→19:57)
[2020-02-16] MEDS: PAROXETINE HCL 20 MG TABLET PO SCH (08:31)
[2020-02-16] MEDS: QUETIAPINE FUMARATE 25 MG TAB PO SCH (08:31)
[2020-02-16] MEDS: HYDROMORPHONE HCL 0.5 MG/0.5 ML ML IVP PRN ×3 (08:49→20:54)
[2020-02-16] MEDS: PANTOPRAZOLE 40 MG/VIAL IVP SCH (09:00)
[2020-02-16] MEDS: PRAZOSIN 2 MG PO SCH ×2 (09:00→19:57)
[2020-02-16 11:11] VITALS: BP 101/68; PULSE 102; RESP 18; TEMP 98.2
[2020-02-16] MEDS: FLUCONAZOLE 200 MG/NS 100 ML 100 ML IV SCH (13:10)
--- NOTE | 2020-02-16 15:15 | NUR ---
RD UPDATE Pt initiated on Clear Liquid Diet Order. Pending TPN weaning. Recommend advance diet as tolerated. RD to continue to monitor. Please notify as additional nutrition concerns arise. Thank you.
[2020-02-16 15:25] VITALS: BP 98/64; PULSE 113; RESP 18; TEMP 98.8
[2020-02-16] MEDS: VANCOMYCIN 1.5 GM in SODIUM CHLORIDE 0.9% 250 ML IV SCH ×2 (16:21→19:56)
--- NOTE | 2020-02-16 16:32 | NUR ---
V VANCO- TROUGH OF 8.8 CONT WITH VANCO . 1.5 GMS IV Q 8HR WITH A FOLLOWUP VANCO TROUGH BEFORE 4TH DOSE.
--- NOTE | 2020-02-16 16:54 | NUR ---
WAITING ON DR. WAY FOR FINAL VAC ORDERS- POSSIBILITY PATIENT WILL GO HOME W COLOSTOMY FOR DRAINAGE
--- NOTE | 2020-02-16 16:55 | NUR ---
WAITING ON DR. WAY FOR FINAL VAC ORDERS- POSSIBILITY PATIENT WILL GO HOME W COLOSTOMY BAG FOR DRAINAGE WHERE WOUND VAC CURRENTLY IS
--- NOTE | 2020-02-16 18:51 | NUR ---
PT STATED THAT SHE HAD 2 LOOSE STOOLS TOOK CL LIQ WELL NO C/O OF NAUSEA. WOUND VAC OUTPUT AT 1800 OF 100 CC . OF A LIGHT BLOODY YELLOWISH OUTPUT .ABD SOFT DENIES ANY PAIN . ENCOURAGE THE I.S. THERAPY AND EXCERCISE OF HER LEGS AND ARMS . CALL LIGHT IN REACH AND REVIEW FALL RISK ,
[2020-02-16 19:15] VITALS: BP 111/66; PULSE 107; RESP 17; TEMP 98.8
[2020-02-16] MEDS ORDERED: M.V.I. IV [ADULT] 10 ML in CLINIMIX E 5%-15% 2,000 ML IV SCH (19:45)
[2020-02-16] MEDS: RISPERIDONE 1 MG TABLET PO SCH (19:57)
[2020-02-16 23:43] VITALS: BP 111/67; PULSE 111; RESP 17; TEMP 98.7
[2020-02-17] MEDS: MEROPENEM 1 GM VIAL IVP SCH (01:21)
[2020-02-17] MEDS: METRONIDAZOLE 500MG/100ML BAG 100 ML IV SCH ×3 (03:10→22:12)
[2020-02-17] MEDS: HYDROMORPHONE HCL 0.5 MG/0.5 ML ML IVP PRN ×2 (03:10→09:59)
[2020-02-17 03:20] VITALS: BP 106/60; PULSE 111; RESP 17; TEMP 98.1
--- NOTE | 2020-02-17 04:40 | NUR ---
patient's random glucose of 586 is inaccurate because patient is being given tpn through picc line. it got contaminated. accucheck shows 98 blood sugar
[2020-02-17] MEDS: VANCOMYCIN 1.5 GM in SODIUM CHLORIDE 0.9% 250 ML IV SCH ×3 (05:15→22:42)
[2020-02-17] MEDS: OXYCODONE/ACETAMIN 5/325MG TAB PO PRN ×4 (05:15→22:39)
--- NOTE | 2020-02-17 06:25 | NUR ---
changed wound vac on abdominal dressing this morning. patient was able to tolerate. no issues. placed wound vac on continous suction of 200.
[2020-02-17 08:00] VITALS: BP 106/62; PULSE 111; RESP 18; TEMP 98
[2020-02-17] MEDS: PRAZOSIN 2 MG PO SCH ×2 (09:00→21:00)
[2020-02-17] MEDS: PANTOPRAZOLE 40 MG/VIAL IVP SCH (09:56)
[2020-02-17] MEDS: QUETIAPINE FUMARATE 25 MG TAB PO SCH (09:56)
[2020-02-17] MEDS: PAROXETINE HCL 20 MG TABLET PO SCH (09:56)
[2020-02-17] MEDS: DULOXETINE HCL 30 MG CAP PO SCH ×2 (09:57→20:54)
[2020-02-17] MEDS: SODIUM CHLORIDE 0.9% 10 ML VIAL IV SCH ×2 (09:58→21:00)
[2020-02-17] MEDS: FAMOTIDINE/PF 20 MG/2 ML VIAL IV SCH ×2 (09:58→20:54)
[2020-02-17] MEDS ORDERED: SODIUM CHLORIDE 0.9% 500ML 500 ML IV ONE (10:15)
[2020-02-17] MEDS: OCTREOTIDE ACETATE 100 MCG/ML AMP SQ SCH ×2 (10:31→15:34)
[2020-02-17 11:42] VITALS: BP 107/67; PULSE 97; RESP 18; TEMP 98.2
[2020-02-17] MEDS: FLUCONAZOLE 200 MG/NS 100 ML 100 ML IV SCH (13:37)
[2020-02-17 16:00] VITALS: BP 112/66; PULSE 107; RESP 18; TEMP 98.5
[2020-02-17 19:56] VITALS: BP 111/64; PULSE 93; RESP 18; TEMP 98.2
[2020-02-17] MEDS: FAT EMULSIONS 20% 250ML 250 ML IV SCH (20:48)
[2020-02-17] MEDS: RISPERIDONE 1 MG TABLET PO SCH (20:54)
[2020-02-17 23:41] VITALS: BP 111/66; PULSE 92; RESP 16; TEMP 98
[2020-02-18] MEDS: OCTREOTIDE ACETATE 100 MCG/ML AMP SQ SCH ×3 (01:12→15:27)
[2020-02-18] MEDS: OXYCODONE/ACETAMIN 5/325MG TAB PO PRN ×3 (02:54→10:49)
[2020-02-18 04:08] VITALS: BP 106/66; PULSE 100; RESP 18; TEMP 98.3
[2020-02-18] MEDS: METRONIDAZOLE 500MG/100ML BAG 100 ML IV SCH ×3 (05:09→20:20)
[2020-02-18] MEDS: VANCOMYCIN 1.5 GM in SODIUM CHLORIDE 0.9% 250 ML IV SCH ×3 (05:58→21:31)
[2020-02-18] MEDS: PANTOPRAZOLE 40 MG/VIAL IVP SCH (08:59)
[2020-02-18] MEDS: SODIUM CHLORIDE 0.9% 10 ML VIAL IV SCH (08:59)
[2020-02-18] MEDS: PAROXETINE HCL 20 MG TABLET PO SCH (08:59)
[2020-02-18] MEDS: DULOXETINE HCL 30 MG CAP PO SCH ×2 (08:59→20:20)
[2020-02-18] MEDS: QUETIAPINE FUMARATE 25 MG TAB PO SCH (08:59)
[2020-02-18] MEDS: FAMOTIDINE/PF 20 MG/2 ML VIAL IV SCH ×2 (08:59→20:20)
[2020-02-18] MEDS: PRAZOSIN 2 MG PO SCH ×2 (09:00→21:00)
[2020-02-18 09:18] VITALS: BP 105/63; PULSE 102; RESP 16; TEMP 98.6
[2020-02-18] MEDS: ONDANSETRON HCL 4 MG/2 ML VIAL IVP PRN (10:49)
--- NOTE | 2020-02-18 11:10 | NUR ---
DR. NEVILLE SPOKE TO DR. NEVILLE EXPLAINED PT IS C/O OF PAIN TO ABD/BACK, STATES FEELS LIKE BEFORE. PT DID GET UP TO SHOWER, AND SHE DID EAT HER BREAKFAST. PER DR. NEVILLE ORDERS ARE TO DO CT OF ABD/PELVIS W/O CONTRAST, NO OTHER ORDERS WILL COME AND SEE PATIENT LATER TODAY.
[2020-02-18 11:30] VITALS: BP 114/68; PULSE 118; RESP 18; TEMP 98.3
[2020-02-18] MEDS: FLUCONAZOLE 200 MG/NS 100 ML 100 ML IV SCH (13:09)
[2020-02-18] MEDS ORDERED: KETOROLAC TROMETHAMINE 15MG/ML ONE (13:41)
[2020-02-18] MEDS ORDERED: KETOROLAC TROMETHAMINE 15MG/ML IV SCH (13:45)
--- NOTE | 2020-02-18 15:30 | NUR ---
CARLOS ALBERTO PENA 28.7 PER PHARM HOLD VANCO DOSE
[2020-02-18 16:42] VITALS: BP 105/71; PULSE 85; RESP 16; TEMP 98.3
[2020-02-18] MEDS: KETOROLAC TROMETHAMINE 15MG/ML IM PRN (18:00)
[2020-02-18] MEDS: RISPERIDONE 1 MG TABLET PO SCH (20:21)
[2020-02-18 20:47] VITALS: BP 105/68; PULSE 86; RESP 16; TEMP 98.2
[2020-02-18 23:48] VITALS: BP 109/75; PULSE 99; RESP 19; TEMP 98.4
[2020-02-19] MEDS: KETOROLAC TROMETHAMINE 15MG/ML IM PRN ×4 (00:27→21:19)
[2020-02-19] MEDS: OCTREOTIDE ACETATE 100 MCG/ML AMP SQ SCH ×2 (00:27→08:43)
[2020-02-19 03:51] VITALS: BP 110/78; PULSE 98; RESP 18; TEMP 98
[2020-02-19] MEDS: METRONIDAZOLE 500MG/100ML BAG 100 ML IV SCH ×2 (05:53→13:41)
[2020-02-19] MEDS ORDERED: M.V.I. IV [ADULT] 10 ML in CLINIMIX E 5%-15% 2,000 ML IV SCH (08:00)
[2020-02-19 08:35] VITALS: BP 106/72; PULSE 106; RESP 18; TEMP 99.9
[2020-02-19] MEDS: PANTOPRAZOLE 40 MG/VIAL IVP SCH (08:42)
[2020-02-19] MEDS: FAMOTIDINE/PF 20 MG/2 ML VIAL IV SCH ×2 (08:42→21:10)
[2020-02-19] MEDS: DULOXETINE HCL 30 MG CAP PO SCH ×2 (08:44→21:10)
[2020-02-19] MEDS: PAROXETINE HCL 20 MG TABLET PO SCH (08:44)
[2020-02-19] MEDS: QUETIAPINE FUMARATE 25 MG TAB PO SCH (08:44)
[2020-02-19] MEDS: VANCOMYCIN 1.5 GM in SODIUM CHLORIDE 0.9% 250 ML IV SCH ×2 (09:00→21:21)
[2020-02-19] MEDS: PRAZOSIN 2 MG PO SCH ×2 (09:00→21:00)
[2020-02-19 12:07] VITALS: BP 113/75; PULSE 99; RESP 17; TEMP 98.8
[2020-02-19] MEDS: FLUCONAZOLE 200 MG/NS 100 ML 100 ML IV SCH (13:45)
[2020-02-19 16:00] VITALS: BP 107/76; PULSE 85; RESP 18; TEMP 99.1
[2020-02-19 19:30] VITALS: BP 116/76; PULSE 87; RESP 18; TEMP 98.6
[2020-02-19] MEDS: RISPERIDONE 1 MG TABLET PO SCH (21:10)
[2020-02-19 23:35] VITALS: BP 107/70; PULSE 95; RESP 18; TEMP 100.3
--- NOTE | 2020-02-20 03:00 | NUR ---
AMBULATED Pt ambulating in the hallway,zeenat well.Wound vac has a good seal,no leak noted. Addendum: 02/21/20 at 0639 by DANIEL BEARDEN RN RN charted on wrong date-should be for 02/21/2020
[2020-02-20] MEDS: KETOROLAC TROMETHAMINE 15MG/ML IM PRN ×4 (03:43→21:48)
[2020-02-20 04:00] VITALS: BP 115/72; PULSE 97; RESP 18; TEMP 99.5
[2020-02-20] MEDS: QUETIAPINE FUMARATE 25 MG TAB PO SCH (08:43)
[2020-02-20] MEDS: DULOXETINE HCL 30 MG CAP PO SCH ×2 (08:43→20:24)
[2020-02-20] MEDS: PAROXETINE HCL 20 MG TABLET PO SCH (08:43)
[2020-02-20] MEDS: VANCOMYCIN 1.5 GM in SODIUM CHLORIDE 0.9% 250 ML IV SCH ×2 (08:44→20:26)
[2020-02-20] MEDS: PANTOPRAZOLE 40 MG/VIAL IVP SCH (08:52)
[2020-02-20] MEDS: FAMOTIDINE/PF 20 MG/2 ML VIAL IV SCH (08:52)
[2020-02-20] MEDS: PRAZOSIN 2 MG PO SCH ×2 (08:53→21:00)
[2020-02-20 09:10] VITALS: BP 107/69; PULSE 99; RESP 18; TEMP 98.4
[2020-02-20] MEDS ORDERED: EPOETIN ALFA 10,000 UNIT/ML VIAL SQ SCH (09:15)
[2020-02-20] MEDS: FLUCONAZOLE 200 MG/NS 100 ML 100 ML IV SCH (13:30)
[2020-02-20 13:31] VITALS: BP 114/75; PULSE 105; RESP 18; TEMP 99.7
[2020-02-20] MEDS: IRON SUCROSE COMPLEX 100 MG in SODIUM CHLORIDE 0.9% 50 ML IV SCH (13:40)
[2020-02-20 16:00] VITALS: BP_SYST 109; BP_SYST 138; BP_DIAS 68; BP_DIAS 72; PULSE 117; PULSE 88; RESP 18; RESP 20; TEMP 98.2; TEMP 99.4
[2020-02-20] MEDS: ONDANSETRON HCL 4 MG/2 ML VIAL IVP PRN (16:26)
--- NOTE | 2020-02-20 18:00 | NUR ---
WOUND VAC CHANGED OUT AGAIN, WAS LEAKING PROFUSELY. HAD ALREADY BEEN CHANGED OUT EARLY THIS AM PER PM NURSE.
[2020-02-20] MEDS ORDERED: M.V.I. IV [ADULT] 10 ML in CLINIMIX E 5%-15% 2,000 ML IV SCH (18:45)
[2020-02-20 20:00] VITALS: BP 116/75; PULSE 108; RESP 16; TEMP 98.9
[2020-02-20] MEDS: RISPERIDONE 1 MG TABLET PO SCH (20:23)
[2020-02-20] MEDS ORDERED: HYDROMORPHONE HCL 0.5 MG/0.5 ML ML IVP ONE (20:30)
[2020-02-20] MEDS: FAT EMULSIONS 20% 250ML 250 ML IV SCH (21:47)
[2020-02-20] MEDS ORDERED: HYDROMORPHONE HCL 0.5 MG/0.5 ML ML ONE (22:51)
--- NOTE | 2020-02-20 23:46 | NUR ---
WOUND VAC Wound vac was leaking,changed per Shasha Ruff,zeenat well.
[2020-02-21] VITALS: BP 112/66; PULSE 90; RESP 16; TEMP 98.5
[2020-02-21 04:00] VITALS: BP 120/73; PULSE 109; RESP 16; TEMP 99.3
[2020-02-21] MEDS: KETOROLAC TROMETHAMINE 15MG/ML IM PRN ×2 (04:12→10:37)
[2020-02-21 08:00] VITALS: BP 127/83; PULSE 108; RESP 18; TEMP 98.9
[2020-02-21] MEDS: HYDROCODONE/ACETAMINOPHEN 5/325 MG TAB PO PRN ×3 (08:00→22:17)
[2020-02-21] MEDS: PRAZOSIN 2 MG PO SCH ×2 (09:00→21:00)
[2020-02-21] MEDS: PANTOPRAZOLE 40 MG/VIAL IVP SCH (10:06)
[2020-02-21] MEDS: PAROXETINE HCL 20 MG TABLET PO SCH (10:06)
[2020-02-21] MEDS: DULOXETINE HCL 30 MG CAP PO SCH ×2 (10:06→22:13)
[2020-02-21] MEDS: IRON SUCROSE COMPLEX 100 MG in SODIUM CHLORIDE 0.9% 50 ML IV SCH (10:06)
[2020-02-21] MEDS: VANCOMYCIN 1.5 GM in SODIUM CHLORIDE 0.9% 250 ML IV SCH ×2 (10:06→22:13)
[2020-02-21] MEDS: ONDANSETRON HCL 4 MG/2 ML VIAL IVP PRN ×2 (10:06→16:32)
[2020-02-21] MEDS: QUETIAPINE FUMARATE 25 MG TAB PO SCH (10:06)
[2020-02-21 12:07] VITALS: BP 112/66; PULSE 96; RESP 18; TEMP 98.8
--- NOTE | 2020-02-21 14:53 | NUR ---
RD FOLLOW UP Pt with Full Liquid Diet Order, TPN in place. Weaning off of TPN as per EMR. Recommend decrease TPN rate to 65 mls/hr, discontinue Intralipids as medically feasible. KENROY attempt to call RN x2, No answer. RD to continue to monitor. Please notify as additional nutrition concerns arise. Thank you. Addendum: 02/21/20 at [address] Amended: Links added.
[2020-02-21 16:00] VITALS: BP 111/74; PULSE 98; RESP 18; TEMP 98.1
[2020-02-21] MEDS: FLUCONAZOLE 200 MG/NS 100 ML 100 ML IV SCH (16:32)
[2020-02-21 19:30] VITALS: BP 110/70; PULSE 98; RESP 18; TEMP 98.1
[2020-02-21] MEDS: RISPERIDONE 1 MG TABLET PO SCH (22:12)
[2020-02-22] VITALS: BP 114/68; PULSE 100; RESP 18; TEMP 98.9
[2020-02-22] MEDS: KETOROLAC TROMETHAMINE 15MG/ML IM PRN ×3 (02:48→23:26)
[2020-02-22 04:00] VITALS: BP 109/63; PULSE 102; RESP 18; TEMP 98.9
[2020-02-22] MEDS: HYDROCODONE/ACETAMINOPHEN 5/325 MG TAB PO PRN ×3 (04:36→20:42)
[2020-02-22 08:00] VITALS: BP 114/71; PULSE 100; RESP 19; TEMP 98.5
[2020-02-22] MEDS: PRAZOSIN 2 MG PO SCH ×2 (09:00→20:44)
[2020-02-22] MEDS: CLINIMIX E 5%-15% 2,000 ML IV NR (09:28)
[2020-02-22] MEDS: FAT EMULSIONS 20% 250ML 250 ML IV SCH (09:29)
[2020-02-22] MEDS: PAROXETINE HCL 20 MG TABLET PO SCH (09:43)
[2020-02-22] MEDS: DULOXETINE HCL 30 MG CAP PO SCH ×2 (09:43→20:42)
[2020-02-22] MEDS: QUETIAPINE FUMARATE 25 MG TAB PO SCH (09:43)
[2020-02-22] MEDS ORDERED: HYDROMORPHONE HCL 2 MG/ML VIAL IVP SCH (09:45)
[2020-02-22] MEDS: VANCOMYCIN 1.5 GM in SODIUM CHLORIDE 0.9% 250 ML IV SCH ×2 (09:57→20:43)
[2020-02-22] MEDS: PANTOPRAZOLE 40 MG/VIAL IVP SCH (10:04)
[2020-02-22] MEDS: IRON SUCROSE COMPLEX 100 MG in SODIUM CHLORIDE 0.9% 50 ML IV SCH (10:25)
[2020-02-22 10:53] VITALS: BP 123/75; PULSE 121; RESP 18; TEMP 98.3
--- NOTE | 2020-02-22 13:53 | NUR ---
DR. NEVILLE CAME TO SEE PATIENT AT BEDSIDE ORDERS TO CONSULT CM TO GET OSTOMY BAG TO REPLACE WOUND VAC, SO SHE CAN GO HOME TO [facility] IN [facility]. ALSO TPN TO BE TAMPERED AND D/D WHEN FINISHED, DIET CHANGED TO REGULAR.
[2020-02-22] MEDS ORDERED: PHARMACY COMMUNICATION MISC SCH (14:00)
--- NOTE | 2020-02-22 14:52 | NUR ---
RD UPDATE RD notification for TPN tapering. Pt currently tolerating Full Liquid diet order, PO intake at 50%. Recommend Ensure as needed. RD to continue to monitor. Please notify as additional nutrition concerns arise. Thank you.
[2020-02-22] MEDS: FLUCONAZOLE 200 MG/NS 100 ML 100 ML IV SCH (15:32)
[2020-02-22 16:00] VITALS: BP 120/71; PULSE 118; RESP 17; TEMP 98.8
[2020-02-22 19:53] VITALS: BP 122/78; PULSE 112; RESP 18; TEMP 99
[2020-02-22] MEDS: RISPERIDONE 1 MG TABLET PO SCH (20:42)
[2020-02-23] VITALS (7 sets, daily range): BP systolic 104–121; BP diastolic 65–75; PULSE 101–119; RESP 18–20; TEMP 98.4–98.9
[2020-02-23] MEDS: HYDROCODONE/ACETAMINOPHEN 5/325 MG TAB PO PRN ×3 (03:33→20:06)
--- NOTE | 2020-02-23 08:45 | NUR ---
D/C WOUND VAC, PLACED COLOSTOMY BAG.
[2020-02-23] MEDS: PAROXETINE HCL 20 MG TABLET PO SCH (08:51)
[2020-02-23] MEDS: QUETIAPINE FUMARATE 25 MG TAB PO SCH (08:51)
[2020-02-23] MEDS: DULOXETINE HCL 30 MG CAP PO SCH ×2 (08:51→20:06)
[2020-02-23] MEDS: PRAZOSIN 2 MG PO SCH ×2 (09:00→21:00)
[2020-02-23] MEDS: KETOROLAC TROMETHAMINE 15MG/ML IM PRN ×2 (09:06→16:40)
[2020-02-23] MEDS: CLINIMIX E 5%-15% 2,000 ML IV NR (09:14)
[2020-02-23] MEDS: FAT EMULSIONS 20% 250ML 250 ML IV SCH (10:00)
--- NOTE | 2020-02-23 12:55 | NUR ---
COLOSTOMY BAG LEAKING WILL CHANGE BAG AND DRESSING.
--- NOTE | 2020-02-23 13:00 | NUR ---
COLOSTOMY BAG CHANGED 2ND TIME
[2020-02-23] MEDS: PANTOPRAZOLE SODIUM 40 MG TABLET.DR PO SCH (13:01)
[2020-02-23] MEDS: FLUCONAZOLE 200 MG/NS 100 ML 100 ML IV SCH (13:27)
[2020-02-23] MEDS: VANCOMYCIN 1.5 GM in SODIUM CHLORIDE 0.9% 250 ML IV SCH ×3 (13:27→21:00)
[2020-02-23] MEDS: IRON SUCROSE COMPLEX 100 MG in SODIUM CHLORIDE 0.9% 50 ML IV SCH (13:27)
--- NOTE | 2020-02-23 15:11 | NUR ---
CM Note: [facility] pending approval CM spoke to pt agreeable for Colostomy bag to be set up, telephone HATTIE signed for [place]. Faxed order, clinicals, confirmation received. Pt pending approval and delivery. Primary nurse aware. CM to cont to follow up.
--- NOTE | 2020-02-23 18:00 | NUR ---
COLOSTOMY BAG CHANGED AGAIN APPLIED BENZOIN, OPSITE THEN COLOSTOMY BAG FOR TIGHT SEAL. TO LEAKING AFTER 5 MINUTES. TOLERATED WELL.
[2020-02-23] MEDS: RISPERIDONE 1 MG TABLET PO SCH (20:06)
[2020-02-23] MEDS: ONDANSETRON HCL 4 MG/2 ML VIAL IVP PRN (23:59)
[2020-02-24] MEDS: KETOROLAC TROMETHAMINE 15MG/ML IM PRN ×2 (00:08→10:50)
[2020-02-24 04:25] VITALS: BP 129/55; PULSE 114; RESP 20; TEMP 99
[2020-02-24] MEDS: HYDROCODONE/ACETAMINOPHEN 5/325 MG TAB PO PRN ×3 (04:46→21:47)
[2020-02-24 08:43] VITALS: BP 112/66; PULSE 118; RESP 18; TEMP 98.2
[2020-02-24] MEDS: PRAZOSIN 2 MG PO SCH ×2 (09:00→21:00)
[2020-02-24] MEDS: VANCOMYCIN 1.5 GM in SODIUM CHLORIDE 0.9% 250 ML IV SCH ×2 (10:47→21:39)
[2020-02-24] MEDS: PAROXETINE HCL 20 MG TABLET PO SCH (10:49)
[2020-02-24] MEDS: DULOXETINE HCL 30 MG CAP PO SCH ×2 (10:49→21:38)
[2020-02-24] MEDS: QUETIAPINE FUMARATE 25 MG TAB PO SCH (10:49)
[2020-02-24] MEDS: PANTOPRAZOLE SODIUM 40 MG TABLET.DR PO SCH (10:49)
[2020-02-24] MEDS: IRON SUCROSE COMPLEX 100 MG in SODIUM CHLORIDE 0.9% 50 ML IV SCH (10:50)
[2020-02-24 11:13] VITALS: BP 119/71; PULSE 121; RESP 20; TEMP 99.7
[2020-02-24] MEDS: FLUCONAZOLE 200 MG/NS 100 ML 100 ML IV SCH (14:50)
[2020-02-24 17:10] VITALS: BP 104/64; PULSE 107; RESP 16; TEMP 97.9
[2020-02-24 19:10] VITALS: BP 113/75; PULSE 103; RESP 17; TEMP 98.9
[2020-02-24] MEDS: RISPERIDONE 1 MG TABLET PO SCH (21:38)
[2020-02-24 23:31] VITALS: BP 112/67; PULSE 99; RESP 17; TEMP 98.4
[2020-02-25 04:16] VITALS: BP_SYST 118; BP_SYST 141; BP_DIAS 72; BP_DIAS 73; PULSE 105; PULSE 88; RESP 18; TEMP 98.1; TEMP 98.5
[2020-02-25] MEDS: HYDROCODONE/ACETAMINOPHEN 5/325 MG TAB PO PRN ×2 (04:37→10:31)
[2020-02-25 08:00] VITALS: BP 111/73; PULSE 107; RESP 18; TEMP 97.7
[2020-02-25] MEDS: IRON SUCROSE COMPLEX 100 MG in SODIUM CHLORIDE 0.9% 50 ML IV SCH (08:37)
[2020-02-25] MEDS: VANCOMYCIN 1.5 GM in SODIUM CHLORIDE 0.9% 250 ML IV SCH ×2 (08:41→22:18)
[2020-02-25] MEDS: PANTOPRAZOLE SODIUM 40 MG TABLET.DR PO SCH (08:44)
[2020-02-25] MEDS: PAROXETINE HCL 20 MG TABLET PO SCH (08:44)
[2020-02-25] MEDS: DULOXETINE HCL 30 MG CAP PO SCH ×2 (08:44→22:17)
[2020-02-25] MEDS: KETOROLAC TROMETHAMINE 15MG/ML IM PRN ×2 (08:44→14:18)
[2020-02-25] MEDS: QUETIAPINE FUMARATE 25 MG TAB PO SCH (08:44)
[2020-02-25] MEDS: PRAZOSIN 2 MG PO SCH ×2 (08:44→21:00)
--- NOTE | 2020-02-25 10:14 | NUR ---
COLOSTOMY CARE AND PATIENT TEACHING PROVIDED INSTRUCTION TO PATIENT ON HOW TO CHANGE COLOSTOMY BAG AND MEASURE STOMA. PATIENT APPEARED TO BE NERVOUS AT DOING THE NEXT BAG CHANGE ON HER OWN.
[2020-02-25] MEDS: ONDANSETRON HCL 4 MG/2 ML VIAL IVP PRN ×2 (10:24→14:16)
[2020-02-25 11:40] VITALS: BP 112/74; PULSE 104; RESP 19; TEMP 98.6
[2020-02-25] MEDS: FLUCONAZOLE 200 MG/NS 100 ML 100 ML IV SCH (14:16)
--- NOTE | 2020-02-25 15:26 | NUR ---
Pt activated call light, c/o "not feeling well". When nurse entered room, pt noted having large, yellowish brown, frothy emesis. Foul smelling, similar to fistula drainage. Notified MARIYA Bolden for hospitalist group. Rec'd orders to downgrade diet to full liq and notify surgeon. Spoke with Dr. Sams to notify. Rec'd orders for KUB and call results.
[2020-02-25 16:57] VITALS: BP 106/70; PULSE 92; RESP 18; TEMP 97.7
[2020-02-25 20:55] VITALS: BP 113/76; PULSE 100; RESP 19; TEMP 99.1
[2020-02-25] MEDS: RISPERIDONE 1 MG TABLET PO SCH (22:17)
[2020-02-26 00:11] VITALS: BP 119/81; PULSE 112; RESP 20; TEMP 99.8
[2020-02-26] MEDS ORDERED: LORAZEPAM 2 MG/ML 1 ML VIAL ONE (04:36)
[2020-02-26 04:37] VITALS: BP 112/75; PULSE 120; RESP 20; TEMP 99.5
[2020-02-26] MEDS ORDERED: LORAZEPAM 2 MG/ML 1 ML VIAL IVP ONE (04:45)
--- NOTE | 2020-02-26 05:03 | NUR ---
PATIENT UPDATE Pt calm at the beginning if the shift, was anxious when told that her norco and toradol pain med was discontinued. She never complained about having pain until 0430 when her heart rate started running bet 140's to 150's as per campus monitor, pt noted very anxious, talking about how she can manage being home when just to drink water makes her throw up. Patient rounded overnight and there wasn't any vomiting episodes observed, no complaints related to not tolerating po intake. Finesse Donnelly called about the anxiety attack with orders received for a one time lozepam 0.5 mg iv which was given. Pt's heart rate now down to the 120's. Pt having this anxiety about being discharges back to home and wants to talk to the doctor about this today.
[2020-02-26 08:00] VITALS: BP 115/78; PULSE 140; RESP 19; TEMP 98.6
[2020-02-26] MEDS: IRON SUCROSE COMPLEX 100 MG in SODIUM CHLORIDE 0.9% 50 ML IV SCH (08:57)
[2020-02-26] MEDS: PRAZOSIN 2 MG PO SCH ×2 (09:00→20:56)
[2020-02-26] MEDS: VANCOMYCIN 1.5 GM in SODIUM CHLORIDE 0.9% 250 ML IV SCH ×2 (09:00→20:55)
[2020-02-26] MEDS: DULOXETINE HCL 30 MG CAP PO SCH ×2 (09:01→20:54)
[2020-02-26] MEDS: QUETIAPINE FUMARATE 25 MG TAB PO SCH (09:01)
[2020-02-26] MEDS: PAROXETINE HCL 20 MG TABLET PO SCH (09:01)
[2020-02-26] MEDS: PANTOPRAZOLE SODIUM 40 MG TABLET.DR PO SCH (09:01)
[2020-02-26 12:00] VITALS: BP 116/77; PULSE 121; RESP 19; TEMP 101.8
[2020-02-26] MEDS: ACETAMINOPHEN 325 MG TAB PO PRN ×2 (13:42→18:38)
[2020-02-26] MEDS: SODIUM CHLORIDE 0.9% 1000ML 1,000 ML IV SCH ×2 (13:43→22:20)
[2020-02-26] MEDS: FLUCONAZOLE 200 MG/NS 100 ML 100 ML IV SCH (13:45)
[2020-02-26 16:00] VITALS: BP 117/77; PULSE 119; RESP 19; TEMP 99.8
--- NOTE | 2020-02-26 18:33 | NUR ---
Fistula care and colostomy bag change education provided to pt. Pt observed doing well while changing own drainage bag. However Top portion of incision appears to have 2 dehisced jaswinder. Notified MARIYA [place]. Notified Dr. Sams. Rec'd orders for FREDA in am.
[2020-02-26] MEDS: RISPERIDONE 1 MG TABLET PO SCH (20:54)
[2020-02-26 21:04] VITALS: BP 119/80; PULSE 104; RESP 20; TEMP 97.9
[2020-02-26] MEDS: ONDANSETRON HCL 4 MG/2 ML VIAL IVP PRN (21:06)
[2020-02-27 00:32] VITALS: BP 109/70; PULSE 102; RESP 20; TEMP 98.1
[2020-02-27] MEDS: ACETAMINOPHEN 325 MG TAB PO PRN (01:37)
[2020-02-27 05:27] VITALS: BP 113/72; PULSE 103; RESP 20; TEMP 99
[2020-02-27] MEDS: PANTOPRAZOLE SODIUM 40 MG TABLET.DR PO SCH (06:16)
[2020-02-27] MEDS ORDERED: KETOROLAC TROMETHAMINE 15MG/ML IV SCH (07:15)
[2020-02-27 07:30] VITALS: BP 137/67; PULSE 94; RESP 16; TEMP 97.9
[2020-02-27] MEDS: IRON SUCROSE COMPLEX 100 MG in SODIUM CHLORIDE 0.9% 50 ML IV SCH (08:11)
[2020-02-27] MEDS: VANCOMYCIN 1.5 GM in SODIUM CHLORIDE 0.9% 250 ML IV SCH (08:12)
[2020-02-27] MEDS: DULOXETINE HCL 30 MG CAP PO SCH (08:12)
[2020-02-27] MEDS: QUETIAPINE FUMARATE 25 MG TAB PO SCH (08:13)
[2020-02-27] MEDS: PRAZOSIN 2 MG PO SCH (08:13)
[2020-02-27] MEDS: PAROXETINE HCL 20 MG TABLET PO SCH (08:13)
[2020-02-27] MEDS: SODIUM CHLORIDE 0.9% 1000ML 1,000 ML IV SCH (10:04)
[2020-02-27] MEDS ORDERED: MEROPENEM 1 GM VIAL IVP SCH (10:45)
--- NOTE | 2020-02-27 10:50 | NUR ---
AMA PATIENT HAS TOLD NURSE THAT SHE WANTS TO LEAVE AGAINST MEDICAL ADVICE. THE HOSPITALIST TEAR DOWN MATCHER (YAMILKA DUONG) HAS BEEN NOTIFIED. HE HAS SPOKEN TO HER AT LENGTH ABOUT THE COMPLICATIONS AND RISKS INVOLVED. SHE ACKNOWLEDGED INSTRUCTIONS AND CONTINUES TO WANT TO GO AMA. DR. VAZQUEZ HAS BEEN NOTIFIED.
--- NOTE | 2020-02-27 11:15 | NUR ---
HOME PATIENT HAS BEEN ASSISTED TO ER EXIT VIA WHEELCHAIR BY FLOOR STAFF CUTTER GRIND TOOL TECHNICIAN. PICC LINE TO LEFT UPPER ARM WAS REMOVED WITH TIP INTACT. DIRECT PRESSURE APPLIED UNTIL BLEEDING CONTROLLED THEN SITE WAS COVERED WITH GAUZE AND SECURED WITH A BAND-AID. SHE HAS LEFT AMA.
== END 2020-02-27 11:30 | disposition left against medical advice (07) | DRG 853 ==
LOC: EDH 14:53 → EEVIPCON 14:53 → EDHIP 14:54 → 4BH 21:00 → 3CH 02-01 19:19
PROVIDERS: ADMIT Family Medicine; ATTEND Family Medicine
PROC: 0DJD0ZZ Inspection of Lower Intestinal Tract, Open Approach (ICD-10-PCS; principal; 2020-01-30)
PROC: 0DBA0ZZ Excision of Jejunum, Open Approach (ICD-10-PCS; 2020-01-30)
PROC: 0W9B3ZZ Drainage of Left Pleural Cavity, Percutaneous Approach (ICD-10-PCS; 2020-02-05)
PROC: 0W993ZZ Drainage of Right Pleural Cavity, Percutaneous Approach (ICD-10-PCS; 2020-02-05)
PROC: 30233N1 Transfusion of Nonautologous Red Blood Cells into Peripheral Vein, Percutaneous Approach (ICD-10-PCS; 2020-02-08)
PROC: 02HV33Z Insertion of Infusion Device into Superior Vena Cava, Percutaneous Approach (ICD-10-PCS; 2020-02-13)
DX: A41.9 Sepsis, unspecified organism (principal); K65.0 Generalized (acute) peritonitis; K63.1 Perforation of intestine (nontraumatic); K65.1 Peritoneal abscess; S36.438A Laceration of other part of small intestine, initial encounter; N39.0 Urinary tract infection, site not specified; N17.9 Acute kidney failure, unspecified; D62 Acute posthemorrhagic anemia; K92.2 Gastrointestinal hemorrhage, unspecified; E22.2 Syndrome of inappropriate secretion of antidiuretic hormone; J90 Pleural effusion, not elsewhere classified; N12 Tubulo-interstitial nephritis, not specified as acute or chronic; S36.113A Laceration of liver, unspecified degree, initial encounter; J98.11 Atelectasis; K31.6 Fistula of stomach and duodenum; K56.7 Ileus, unspecified; F32.9 Major depressive disorder, single episode, unspecified; E83.39 Other disorders of phosphorus metabolism; N73.9 Female pelvic inflammatory disease, unspecified; Z20.828 Contact with and (suspected) exposure to other viral communicable diseases; D50.9 Iron deficiency anemia, unspecified; E11.22 Type 2 diabetes mellitus with diabetic chronic kidney disease; E66.9 Obesity, unspecified; E87.6 Hypokalemia; F29 Unspecified psychosis not due to a substance or known physiological condition; F43.10 Post-traumatic stress disorder, unspecified; G47.00 Insomnia, unspecified; G89.29 Other chronic pain; K52.9 Noninfective gastroenteritis and colitis, unspecified; N18.9 Chronic kidney disease, unspecified; Y09 Assault by unspecified means; Z68.30 Body mass index [BMI] 30.0-30.9, adult; Y92.098 Other place in other non-institutional residence as the place of occurrence of the external cause; Z72.0 Tobacco use; Z74.01 Bed confinement status; Z98.51 Tubal ligation status; Z93.3 Colostomy status; Z83.3 Family history of diabetes mellitus

== ENCOUNTER 2020-03-01 20:11 | Inpatient (IN) | payer OTHER ==
[~2020-03-01] VITALS: Ht 177.8 cm; Wt 68.8 kg
[2020-03-01] MEDS ORDERED: LACTULOSE 20 GM/30 ML UDCUP PO PRN (22:45)
[2020-03-01] MEDS ORDERED: ONDANSETRON HCL 4 MG/2 ML VIAL IV PRN (22:45)
[2020-03-01] MEDS ORDERED: ACETAMINOPHEN 325 MG TAB PO PRN ×2 (22:45)
[2020-03-01] MEDS ORDERED: ONDANSETRON HCL 4 MG/2 ML VIAL ONE (22:54)
[2020-03-01] MEDS ORDERED: METRONIDAZOLE 500MG/100ML BAG 100 ML ONE (22:54)
[2020-03-01] MEDS ORDERED: MORPHINE SULFATE 4 MG/1ML SYG ONE (22:55)
[2020-03-01] MEDS ORDERED: SODIUM CHLORIDE 0.9% 1000ML 1,000 ML IV ONE (22:55)
[2020-03-01] MEDS ORDERED: POTASSIUM CHLORIDE 10MEQ/100ML 100 ML IV ONE (23:56)
[2020-03-02 00:39] VITALS: BP 118/79; PULSE 96; RESP 18; TEMP 97.9
[2020-03-02] MEDS: LIDOCAINE HCL-MPF 1% 2ML VIAL IV PRN ×3 (01:03→17:28)
--- NOTE | 2020-03-02 01:30 | NUR ---
Since patient arrived to the floor, requesting to make sure pain medication would be available when needed every 6 hours. I paged JonelleFelicia TRADEMARK AFFIXER through answering service called within one minute. Informed him of above, stated that patient is not to have any pain medication. That had ordered before patient left AMA last time, not to be giving pain medication to patient. Patient made aware, verbalized understanding but stated she did not understand why. Informed her would be called tomorrow to come and see her. Patient without any further comments.
[2020-03-02] MEDS: SODIUM CHLORIDE 0.9% 1000ML 1,000 ML IV SCH ×4 (03:35→23:42)
[2020-03-02] MEDS: POTASSIUM CHLORIDE 10MEQ/100ML 100 ML IV PRN ×2 (03:36→17:25)
[2020-03-02 04:15] VITALS: BP 121/78; PULSE 91; RESP 20; TEMP 98
--- NOTE | 2020-03-02 07:43 | NUR ---
Dr. Sams notified of consult with previous history of surgery. Notified of drainage to NG tube, stoma. No new orders received.
[2020-03-02 08:00] VITALS: BP 123/84; PULSE 104; RESP 16; TEMP 99.2
[2020-03-02] MEDS ORDERED: ENOXAPARIN SODIUM 40 MG/0.4 ML SYRINGE SQ SCH (09:00)
[2020-03-02] MEDS: FAMOTIDINE/PF 20 MG/2 ML VIAL IV SCH ×2 (09:46→20:34)
[2020-03-02] MEDS ORDERED: KETOROLAC TROMETHAMINE 30MG/ML IV PRN (10:00)
[2020-03-02 11:00] VITALS: BP 127/88; PULSE 103; RESP 18; TEMP 98.7
--- NOTE | 2020-03-02 11:54 | NUR ---
OKP CM met with pt discussed dc plans. Pt requested for CM please come back some other time, currently not in the mood to talk at the moment. Obtained info from previous medical records. Pt is independent prior to admission, left AMA, unable to gather info as to where pt currently lives. Past admission pt is suppose to dc to brother's house in [place], but pt left AMA. Pt has approval for [place] colostomy bags and supplies, was pending delivery. Patient came back to ED due to pt ran out of pain medication. DC plan for now home w/brother. CM will reassess once pt closer to dc. CM to cont to follow up. Addendum: 03/02/20 at 1157 by WHIT LOPEZ LVN Amended: Links added.
[2020-03-02] MEDS ORDERED: AMOXICILLIN/POTASSIUM CLAV 875-125 TABLET PO SCH (12:00)
[2020-03-02] MEDS ORDERED: FLUCONAZOLE 100 MG TAB PO SCH (12:00)
[2020-03-02] MEDS ORDERED: FLUCONAZOLE 200 MG/NS 100 ML 100 ML IV SCH ×2 (12:30→19:00)
[2020-03-02] MEDS: ZOSYN 3.375GM+NS 50ML 50 ML IV SCH ×2 (13:01→20:34)
[2020-03-02 19:47] VITALS: BP 123/87; PULSE 99; RESP 20; TEMP 98.8
[2020-03-02] MEDS ORDERED: TEMAZEPAM 7.5 MG CAPSULE PO ONE (22:15)
[2020-03-03 00:13] VITALS: BP 139/85; PULSE 79; RESP 18; TEMP 98.8
[2020-03-03] MEDS: LIDOCAINE HCL-MPF 1% 2ML VIAL IV PRN (01:21)
[2020-03-03] MEDS: POTASSIUM CHLORIDE 10MEQ/100ML 100 ML IV PRN (01:21)
--- NOTE | 2020-03-03 03:00 | NUR ---
ROUNDS PATIENT AWAKE AND ALERT TALKING ON CELLPHONE WITH BOYFRIEND. VOICES ALL NEEDS. NO COMPLAINTS OF PAIN VOICED AT THIS TIME. VITALS STABLE. AFEBRILE. TOLERATING IVF WELL. NS INFUSING AT 100ML/HR. NO ADVERSE REACTION NOTED FROM IV ABT. POTASSIUM 3.0 BEING REPLACED AT THIS TIME. HOB ELEVATED. NGT IN PLACE DRAINING GREEN FLUID TO SUCTION CANISTER. LIS. TOTAL CARE RENDERED Q2H AND PRN. PATIENT ON MENSES. PATIENT REFUSES TO DO OWN PERICARE. CALL LIGHT WITHIN REACH. WILL CONTINUE TO BE OBSERVED. Addendum: 03/03/20 at 0407 by LEATHA PHELPS RN RN Amended: Links added.
[2020-03-03 03:41] VITALS: BP 127/81; PULSE 68; RESP 18; TEMP 98.7
[2020-03-03] MEDS: ZOSYN 3.375GM+NS 50ML 50 ML IV SCH (04:17)
[2020-03-03 08:00] VITALS: BP 130/82; PULSE 61; RESP 18; TEMP 98.6
--- NOTE | 2020-03-03 08:56 | NUR ---
Patient expressed wishes to leave hospital against clearance from medical physician team. Educated patient on risks for symptoms returning and complications that can occur with abdominal wound without medical treatment. Educated on current treatment plan and how symptoms had already resolved, (nausea, vomiting) since admission. Patient insisted that she wanted to leave. Notified Maria R Nguyễn NP, Finesse Sams MD and Carey Brown MD notified. AMA signed by patient. NG tube disconnected from suction, PIV to RAC removed, bleeding controlled, dressing applied. Patient stated she wanted her colostomy bag changed. Patient was previously educated on correct changing of colostomy. Supplied patient with colostomy bag, and supplies to change device independently. Instructed patient to notify once ready so that she could be informed of correct exit from hospital. Patient called Axel on cell phone to pick her up.
--- NOTE | 2020-03-03 10:14 | NUR ---
Notified patient that phone credit front office developer was left behind in room. Notified patient she can go to emergency entrance and notify security at entrance she is there to grape picker belongings left behind. Patient verbalized understanding. Security notified to grape picker item to be kept in lost and found. Patient ID label attached to belongings bag.
== END 2020-03-03 09:28 | disposition left against medical advice (07) | DRG 389 ==
LOC: EDH 20:11 → OBSVTOIN 20:12 → EDHIP 20:12 → 3CH 03-02 00:28 → 3BH 03-02 19:40
PROVIDERS: ADMIT Hospitalist; ATTEND Hospitalist
DX: K56.609 Unspecified intestinal obstruction, unspecified as to partial versus complete obstruction (principal); T81.30XA Disruption of wound, unspecified, initial encounter; E87.6 Hypokalemia; N73.9 Female pelvic inflammatory disease, unspecified; Y83.8 Other surgical procedures as the cause of abnormal reaction of the patient, or of later complication, without mention of misadventure at the time of the procedure; Y92.89 Other specified places as the place of occurrence of the external cause; Z93.3 Colostomy status; Z83.3 Family history of diabetes mellitus

== ENCOUNTER 2020-03-06 07:49 | Emergency (ER) | payer OTHER ==
[2020-03-06] MEDS ORDERED: SODIUM CHLORIDE 0.9% 1000ML 1,000 ML IV ONE (07:50)
[2020-03-06] MEDS ORDERED: ONDANSETRON HCL 4 MG/2 ML VIAL ONE (08:45)
[2020-03-06] MEDS ORDERED: KETOROLAC TROMETHAMINE 30MG/ML ONE (08:45)
[2020-03-06 08:50] LABS: APPEARANCE,URINE SL CLOUDY (CLEAR); BILIRUBIN,URINE MODERATE (NEGATIVE); COLOR,URINE YELLOW (YELLOW); GLUCOSE, URINE (UA) NEGATIVE (NEGATIVE); KETONES,URINE 40 mg/dL (NEGATIVE); LEUKOCYTE ESTERASE ,URINE NEGATIVE (NEGATIVE); NITRATE,URINE NEGATIVE (NEGATIVE); OCCULT BLOOD,URINE MODERATE (NEGATIVE); PROTEIN,URINE 30 mg/dL (NEGATIVE); UROBILINOGEN,URINE 0.2 mg/dL (0.2-1.0)
[2020-03-06] MEDS ORDERED: IOHEXOL-350 75 ML VIAL IV ONE (08:51)
[2020-03-06 08:57] LABS: HCG,QUAL RESULT NEGATIVE (NEGATIVE)
[2020-03-06 08:58] LABS: AMPHET/METH SCREEN,URINE NEGATIVE (NEGATIVE); BARBITURATE SCREEN, URINE NEGATIVE (NEGATIVE); BENZODIAZEPINES SCREEN,URINE NEGATIVE (NEGATIVE); CANNABINOID SCREEN,URINE NEGATIVE (NEGATIVE); COCAINE SCREEN,URINE NEGATIVE (NEGATIVE); OPIATE SCREEN,URINE POSITIVE (NEGATIVE); PHENCYCLIDINE SCREEN,URINE NEGATIVE (NEGATIVE)
[2020-03-06 09:01] LABS: BASOPHILS % (AUTO) 0.8 % (0.0-5.0); HEMATOCRIT 31.9 % (36-48); LYMPHOCYTES % (AUTO) 13.9 % (21.0-51.0); MEAN CORPUSCULAR HEMOGLOBIN 29.9 pg (27.0-33.0); MEAN CORPUSCULAR VOLUME 93.5 fL (79-99); MONOCYTES % (AUTO) 10.3 % (3.0-13.0); NEUTROPHILS % (AUTO) 66.5 % (40.0-77.0); PLATELET COUNT (AUTO) 508 K/uL (130-400); RED BLOOD CELL COUNT(AUTO) 3.41 MIL/uL (4.00-5.50); RED CELL DISTRIBUTION WIDTH 14.8 % (11.0-15.5); WHITE BLOOD COUNT (AUTO) 7.4 K/uL (4.8-10.8)
[2020-03-06 09:04] LABS: BACTERIA,URINE Rare /HPF (None Seen)
[2020-03-06 09:05] LABS: MUCUS,URINE Many LPF (None Seen); SQUAMOUS EPITHELIAL CELL,UR Rare /HPF (0-2)
[2020-03-06 09:11] LABS: ALBUMIN 2.3 g/dL (3.5-5.0); BILIRUBIN,DIRECT 0.4 mg/dL (0.0-0.3); BILIRUBIN,TOTAL 0.8 mg/dL (0.2-1.0); CREATININE 0.7 mg/dL (0.5-1.5); INR 1.12 (0.85-1.15); PARTIAL THROMBOPLASTIN TIME 26.8 SEC (26.3-35.5); TOTAL PROTEIN, SERUM 7.4 g/dL (6.0-8.3)
[2020-03-06 09:12] LABS: POTASSIUM 2.8 mmol/L (3.5-5.1)
== END 2020-03-06 10:05 | disposition left against medical advice (07) ==
LOC: EDH 07:49
DX: R10.84 Generalized abdominal pain (principal); R11.2 Nausea with vomiting, unspecified; Z98.51 Tubal ligation status; Z87.891 Personal history of nicotine dependence; Z93.3 Colostomy status
CPT/HCPCS: 36415; 80048; 80076; 80305; 81001; 81025; 82550; 83690; 85025; 85610; 85730; 96361; 96374; 96375; 99284; J1885; J2405; J7030; Q9967